=== PATIENT | male | born 1950 | race Caucasian/White ===

== ENCOUNTER 2017-06-16 05:30 | Emergency (ER) | payer OTHER | END 2017-06-16 06:35 | disposition home or self-care (01) | LOC: D.ER 05:30 | DX: R11.10 Vomiting, unspecified (principal); R06.6 Hiccough; I44.0 Atrioventricular block, first degree ==

== ENCOUNTER 2017-07-05 02:04 | Emergency (ER) | payer OTHER ==
[2017-07-05 02:34] LABS: BASOPHILS 0.4 % (0-2); EOSINOPHILS 3.9 % (0-7); HEMATOCRIT 37.4 % (42.0-54.0); HEMOGLOBIN 12.9 g/dL (13.5-17.5); LYMPHOCYTES 31.9 % (15-50); MCH 30.8 pg (26.0-34.0); MCHC 34.5 g/dL (31.0-37.0); MCV 89.3 fL (80.0-100.0); MEAN PLATELET VOLUME 10.4 fL (7.4-10.4); NEUTROPHILS 56.8 % (40-80); PLATELET COUNT 177 10x3/uL (130-400); RBC 4.19 10x6/uL (4.20-6.10); RDW 12.8 % (11.5-14.5); WBC 5.1 10x3/uL (4.8-10.8)
[2017-07-05 02:43] LABS: INR 0.93 (0.85-1.17); PROTIME 12.1 SECONDS (11.6-15.0)
[2017-07-05 02:44] LABS: APTT 23.7 SECONDS (22.8-39.4)
[2017-07-05 02:49] LABS: ALBUMIN 3.3 g/dL (3.4-5.0); ANION GAP 13.9 mmol/L (8-16); BILIRUBIN - TOTAL 0.62 mg/dL (0.2-1.3); CALCIUM 8.8 mg/dL (8.5-10.1); CARBON DIOXIDE 28.9 mmol/L (21.0-32.0); CREATININE - SERUM 1.5 mg/dL (0.6-1.3); MAGNESIUM - SERUM 1.7 mg/dL (1.8-2.4); POTASSIUM - SERUM 3.8 mmol/L (3.5-5.1)
[2017-07-05 04:00] LABS: TROPONIN-I 0.017 ng/mL (0.000-0.060)
== END 2017-07-05 06:43 | disposition short-term general hospital (02) ==
LOC: D.ER 02:04
PROVIDERS: Emergency Medicine
DX: G45.9 Transient cerebral ischemic attack, unspecified (principal); D64.9 Anemia, unspecified; I10 Essential (primary) hypertension; E11.9 Type 2 diabetes mellitus without complications; E83.42 Hypomagnesemia; N28.9 Disorder of kidney and ureter, unspecified; J18.9 Pneumonia, unspecified organism

== ENCOUNTER 2018-01-31 10:44 | Inpatient (IN) | payer OTHER ==
[~2018-01-31] VITALS: Ht 182.9 cm; Wt 113.4 kg
--- NOTE | ~2018-01-31 | MORECARE ---
CASE MANAGEMENT DISCHARGE SUMMARY PATIENT: DEVORAH LORD UNIT: [id number] ADM DATE: 01/31/18 AGE: 67 : 50 SEX: M ROOM/BED: D.2101 AUTHOR: TREASURE,DOC PHYSICIAN: REFERRING PHYSICIAN: ZAK MENJIVAR MD DATE OF SERVICE: 02/01/18 Discharge Plan Patient Name: DEVORAH LORD Facility: [facility]:[place] : 1950 Planned Disposition: [facility] facility Anticipated Discharge Date: 02/01/18 Discharge Date: Expected LOS: 1 Initial Reviewer: CAROLYN Initial Review Date: 02/01/2018 Generated: 02/01/18 5:42 pm Comments DCP- Discharge Planning Updated by [email or web address]: Adam Mata on 02/01/18 3:[address] Patient Name: DEVORAH LORD Admission Status: ER Accout number: [id number] Admission Date: 01-31-2018 : 1950 Admission Diagnosis: Attending: ZAK MENJIVAR Current LOS: 1 Anticipated DC Date: 02-01-2018 Planned Disposition: [place] facility Primary Insurance: [employer] ADMINISTRATION PLANNED EXTERNAL PROVIDER: [facility] WHEN BED AVAILABLE OR HOME WHEN STABLE Discharge Planning Comments: CM MET WITH PT IN ROOM TO DISCUSS DISCHARGE PLANNING AND NEEDS. PT REPORTS LIVING AT HOME INDEPENDENTLY AND ALONE. PT HAS NO MEDICAL EQUIPMENT AND NO OUTSIDE SERVICES ASSISTING IN THE HOME. CM DISCUSSED AVAILABILITY OF HOME HEALTH, REHAB SERVICES AND MEDICAL EQUIPMENT. PT DENIES DISCHARGE NEEDS, REPORTS [facility] WILL PICK HIM UP FOR DISCHARGE HOME. PT REPORTS HE THINKS THE [facility], PT IS WILLING FOR TRANSFER IF BED IS AVAILABLE. CM CALLED [place] [facility], , PT PLACED ON TRANSFER LIST, VA WILL CALL IF AND WHEN A BED BECOMES AVAILABLE. Auto Body Builder Apprentice: Adam Mata DCPIA - Discharge Planning Initial Assessment Updated by [email or web address]: Adam Mata on 02/01/18 4:36 pm * Is the patient Alert and Oriented? Yes * How many steps to enter\exit or inside your home? * PCP [facility] * Pharmacy [place] [facility] * Preadmission Environment Home Alone * ADLs Independent * Equipment None * Other Equipment [facility] - PREFERRED PROVIDER * List name and contact numbers for known caregivers / representatives who currently or will assist patient after discharge: JUAN GALARZA, DTR, TOREY LORD, SON, * Verbal permission to speak to the caregivers and representatives has been obtained from the patient. N/A * Community resources currently utilized None * Please name any agencies selected above. NONE * Additional services required to return to the preadmission environment? No * Can the patient safely return to the preadmission environment? Yes * Has this patient been hospitalized within the prior 30 days at any hospital? Yes Patient Name: DEVORAH LORD Page 58038 at 1642 All edits/amendments must be made on the electronic document DICTATION DATE: 02/01/181640 JAVA SOFTWARE: KATLIN 02/01/181640 RPT#: [id number] DC DATE: STATUS: ADM IN [facility] [address] [place] [address] END OF REPORT
--- NOTE | ~2018-01-31 | EC ---
PATIENT:DEVORAH LORD DATE OF SERVICE: 01/31/18 SEX: M MEDICAL RECORD: [id number] DATE OF : [birth year] LOCATION:D.M2 D.210 AGE OF PATIENT: 67 ADMISSION DATE: 01/31/18 REFERRING PHYSICIAN: INTERPRETING PHYSICIAN: LAKEISHA HENDRICKSON MD ECHOCARDIOGRAM REPORT ECHO CHARGES 4 ECHO COMPLETE Date: 02/01/18 CLINICAL DIAGNOSIS: CHF ECHOCARDIOGRAPHIC MEASUREMENTS (adult normal given) AC root (d.<3.7cm) 3.6 cm LV Septum d (<1.2 cm> 1.4 cm Valve Excursion 1.3 cm LV Septum (systole) 1.6 cm Left Atria (s.<4.0cm> 4.0 cm LVPW d(<1.2cm) 1.6 cm RV (d.<2.3cm) 5.3 cm LVPW (sytole) 1.8 cm LV diastole(<5.6CM) 5.6 cm MV E-F(>70mm/sec) cm LV systole 4.5 cm LVOT Diameter 1.9 cm MV exc.(>10mm) 1.9 cm Est.ejection fraction (50-75%) % DOPPLER: LVIT cm/sec A 145 cm/sec E 1036 cm/sec LA cm/sec RVSP 31 mmHg LVOT 127 cm/sec AOP1/2T m/s Asc. Ao 277 cm/sec RVOT 108 cm/sec RA cm/sec PA 166 cm/sec AV Gradient Peak 30.64mmHg AV Mean 17.34mmHg AV Area 1.2 cm MV Gradient Peak 7.93 mmHg MV Mean 3.39 mmHg MV Area cm COMMENTS: Flight Operations Engineer: Chito HSIEH Director Of Collections: 4 Dr. Hendrickson TAPE# PACS Pericardial Effusion N DATE OF SERVICE: PROCEDURE: Transthoracic echocardiogram. FINDINGS: 1. The left ventricle shows evidence of moderate concentric left ventricular hypertrophy. Inflow characteristics consistent with diastolic dysfunction, ejection fraction is 55%. 2. The left atrium is mildly dilated. 3. The aortic valve is thickened and sclerotic and there appears to be at least ECHOCARDIOGRAM REPORT [id number] DEVORAH LORD moderate aortic stenosis with a peak pressure gradient measured here of 30 mmHg. Valve area was calculated at 1.2 cm-squared. 4. The mitral valve has mild mitral regurgitation. There is mitral annular calcification. 5. Tricuspid valve has mild tricuspid regurgitation. 6. The right ventricle is moderately dilated. 7. The right atrium is mildly dilated. 8. The pulmonic valve appears grossly normal. 9. The pericardium is normal. CONCLUSIONS: The patient has evidence of hypertensive heart disease as well as moderate aortic stenosis. Further evaluation and treatment may be advisable depending on the patient's clinical situation. TRANSINT:[id number] Voice Confirmation ID: [id number] DOCUMENT ID: [id number] LAKEISHA HENDRICKSON MD CC: [id number] DICTATION DATE: 02/04/18 103 CUSTOM FEED MILL OPERATOR: 02/04/18 1054 DIS IN 02/03/18 [facility] [address] [place] [address]
--- NOTE | ~2018-01-31 | MORECARE ---
CASE MANAGEMENT DISCHARGE SUMMARY PATIENT: DEVORAH LORD UNIT: [id number] ADM DATE: 01/31/18 AGE: 67 : 50 SEX: M ROOM/BED: D.210 AUTHOR: TREASURE,DOC PHYSICIAN: REFERRING PHYSICIAN: ZAK MENJIVAR MD DATE OF SERVICE: 02/04/18 Discharge Plan Patient Name: DEVORAH LORD Facility: [facility]:[place] : 1950 Planned Disposition: [facility] facility Anticipated Discharge Date: 02/03/18 Discharge Date: 02/03/2018 Expected LOS: 3 Initial Reviewer: [email or web address] Initial Review Date: 02/01/2018 Generated: 02/04/18 9:26 am Comments DCP- Discharge Planning Updated by [email or web address]: Adam Mata on 02/04/18 7:[address] Patient Name: DEVORAH LORD Encounter No: [id number] : 1950 Primary Insurance: [employer] Anticipated DC Date: 02-03-2018 Planned Disposition: HOME DCP follow-up note: CM REVIEWED CHART, PT DISCHARGED HOME OVER WEEKEND. CM CALLED [facility], , PT REMOVED FROM TRANSFER LIST, CM FAXED DISCHARGE INFORMATION TO [facility] AT [phone]. ANUP Maria DCP- Discharge Planning Updated by [email or web address]: Adam Mata on 02/01/18 3:[address] Patient Name: DEVORAH LORD Admission Status: ER Accout number: [id number] Admission Date: 01-31-2018 : 1950 Admission Diagnosis: Attending: ZAK MENJIVAR Current LOS: 1 Anticipated DC Date: 02-01-2018 Planned Disposition: [place] facility Primary Insurance: [facility] ADMINISTRATION PLANNED EXTERNAL PROVIDER: [facility] WHEN BED AVAILABLE OR HOME WHEN STABLE Discharge Planning Comments: CM MET WITH PT IN ROOM TO DISCUSS DISCHARGE PLANNING AND NEEDS. PT REPORTS LIVING AT HOME INDEPENDENTLY AND ALONE. PT HAS NO MEDICAL EQUIPMENT AND NO OUTSIDE SERVICES ASSISTING IN THE HOME. CM DISCUSSED AVAILABILITY OF HOME HEALTH, REHAB SERVICES AND MEDICAL EQUIPMENT. PT DENIES DISCHARGE NEEDS, REPORTS [facility] WILL PICK HIM UP FOR DISCHARGE HOME. PT REPORTS HE THINKS [facility], PT IS WILLING FOR TRANSFER IF BED IS AVAILABLE. CM CALLED [place] [facility], , PT PLACED ON TRANSFER LIST, VA WILL CALL IF AND WHEN A BED BECOMES AVAILABLE. Cracker And Cookie Machine Operator: Adam Adolfo DCPIA - Discharge Planning Initial Assessment Updated by [email or web address]: Adam Mata on 02/01/18 4:36 pm * Is the patient Alert and Oriented? Yes * How many steps to enter\exit or inside your home? * PCP [facility] * Pharmacy [place] OR [facility] * Preadmission Environment Home Alone * ADLs Independent * Equipment None * Other Equipment [place] - PREFERRED PROVIDER * List name and contact numbers for known caregivers / representatives who currently or will assist patient after discharge: JUAN GALARZA, DTR, TOREY LORD, SON, * Verbal permission to speak to the caregivers and representatives has been obtained from the patient. N/A * Community resources currently utilized None * Please name any agencies selected above. NONE * Additional services required to return to the preadmission environment? No * Can the patient safely return to the preadmission environment? Yes * Has this patient been hospitalized within the prior 30 days at any hospital? Yes Last DP export: 02/04/18 7:14 Patient Name: DEVORAH LORD Page [id number] at 0826 All edits/amendments must be made on the electronic document DICTATION DATE: 02/04/18825 RUBBER COMPOUNDER MIXER: KATLIN 02/04/18825 RPT#: [id number] DC DATE:02/03/18 STATUS: DIS IN [facility] [address] [facility] [place] [address] END OF REPORT
--- NOTE | ~2018-01-31 | MORECARE ---
CASE MANAGEMENT DISCHARGE SUMMARY PATIENT: DEVORAH LORD UNIT: [id number] ADM DATE: 01/31/18 AGE: 67 : 50 SEX: M ROOM/BED: D.2101 AUTHOR: TREASUER,DOC PHYSICIAN: REFERRING PHYSICIAN: ZAK MENJIVAR MD DATE OF SERVICE: 02/04/18 Discharge Plan Patient Name: DEVORAH LORD Facility: [facility]:[place] : 1950 Planned Disposition: [facility] facility Anticipated Discharge Date: 02/03/18 Discharge Date: 02/03/2018 Expected LOS: 3 Initial Reviewer: [email or web address] Initial Review Date: 02/01/2018 Generated: 02/04/18 9:14 am Comments DCP- Discharge Planning Updated by [email or web address]: Adam Mata on 02/01/18 3:[address] Patient Name: DEVORAH LORD Admission Status: ER Accout number: [id number] Admission Date: 01-31-2018 : 1950 Admission Diagnosis: Attending: ZAK MENJIVAR Current LOS: 1 Anticipated DC Date: 02-01-2018 Planned Disposition: [place] facility Primary Insurance: [employer] ADMINISTRATION PLANNED EXTERNAL PROVIDER: [facility] WHEN BED AVAILABLE OR HOME WHEN STABLE Discharge Planning Comments: CM MET WITH PT IN ROOM TO DISCUSS DISCHARGE PLANNING AND NEEDS. PT REPORTS LIVING AT HOME INDEPENDENTLY AND ALONE. PT HAS NO MEDICAL EQUIPMENT AND NO OUTSIDE SERVICES ASSISTING IN THE HOME. CM DISCUSSED AVAILABILITY OF HOME HEALTH, REHAB SERVICES AND MEDICAL EQUIPMENT. PT DENIES DISCHARGE NEEDS, REPORTS [facility] WILL PICK HIM UP FOR DISCHARGE HOME. PT REPORTS HE THINKS THE ER [facility]ED THE [facility] FOR [facility] YESTERDAY, PT IS WILLING FOR TRANSFER IF BED IS AVAILABLE. CM CALLED [place] [facility], , PT PLACED ON TRANSFER LIST, VA WILL CALL IF AND WHEN A BED BECOMES AVAILABLE. Cub Reporter: Adam Mata DCPIA - Discharge Planning Initial Assessment Updated by [email or web address]: Adam Mata on 02/01/18 4:36 pm * Is the patient Alert and Oriented? Yes * How many steps to enter\exit or inside your home? * PCP [facility] * Pharmacy [place] [facility] * Preadmission Environment Home Alone * ADLs Independent * Equipment None * Other Equipment [facility] - PREFERRED PROVIDER * List name and contact numbers for known caregivers / representatives who currently or will assist patient after discharge: JUAN GALARZA, DTR, TOREY LORD, SON, * Verbal permission to speak to the caregivers and representatives has been obtained from the patient. N/A * Community resources currently utilized None * Please name any agencies selected above. NONE * Additional services required to return to the preadmission environment? No * Can the patient safely return to the preadmission environment? Yes * Has this patient been hospitalized within the prior 30 days at any hospital? Yes External Providers External Provider: OTHER-OTHER Next Contact Date: 02/04/2018 Service Request Date: Service Type: Resolution: Reviewer: Comments: Last DP export: 02/01/18 3:42 Patient Name: DEVORAH LORD Page 04856 at 0814 All edits/amendments must be made on the electronic document DICTATION DATE: 02/04/18812 CITY WEIGHMASTER: KATILN 02/04/18812 RPT#: [id number] DC DATE:02/03/18 STATUS: DIS IN [facility] [address] [place] [address] END OF REPORT
[2018-01-31 11:45] LABS: ALBUMIN 3.3 g/dL (3.4-5.0); ALKALINE PHOSPHATASE 85 U/L (46-116); ALT (SGPT) 12 U/L (10-68); CALC OSMOLALITY 288 mosm/kg (275-300); CALCIUM 8.6 mg/dL (8.5-10.1); CARBON DIOXIDE 29.6 mmol/L (21.0-32.0); CHLORIDE - SERUM 107 mmol/L (98-107); CREATININE - SERUM 1.4 mg/dL (0.6-1.3); GLUCOSE 164 mg/dL (74-106); POTASSIUM - SERUM 4.6 mmol/L (3.5-5.1); SODIUM 142 mmol/L (136-145); UREA NITROGEN 18 mg/dL (7-18); eGFR NON AFRICAN AMERICAN 54 mL/min (90-120)
[2018-01-31 11:46] LABS: BASOPHILS 0.7 % (0-2); EOSINOPHILS 3.1 % (0-7); HEMATOCRIT 33.5 % (42.0-54.0); HEMOGLOBIN 10.6 g/dL (13.5-17.5); IMMATURE GRANULOCYTES 0.2 % (0-5); LYMPHOCYTES 21.2 % (15-50); MCH 29.4 pg (26.0-34.0); MCHC 31.6 g/dL (31.0-37.0); MCV 93.1 fL (80.0-100.0); MEAN PLATELET VOLUME 10.4 fL (7.4-10.4); NEUTROPHILS 68.8 % (40-80); PLATELET COUNT 161 10x3/uL (130-400); WBC 4.2 10x3/uL (4.8-10.8)
[2018-01-31 11:50] LABS: CREATINE KINASE 69 UL (21-232); PRO BNP 999 pg/mL (0-125)
[2018-01-31 11:51] LABS: TROPONIN-I < 0.017 ng/mL (0.000-0.060)
[2018-01-31 11:57] LABS: INR 1.11 (0.85-1.17)
[2018-01-31 12:07] VITALS: BP 153/70
[2018-01-31 12:10] LABS: CKMB 1.7 U/L (0.0-3.6); CREATINE KINASE 68 UL (21-232); PRO BNP 1058 pg/mL (0-125)
[2018-01-31 12:13] LABS: TROPONIN-I < 0.017 ng/mL (0.000-0.060)
[2018-01-31 12:47] LABS: APPEARANCE CLEAR (CLEAR); COLOR YELLOW (YELLOW)
[2018-01-31 12:48] LABS: BACTERIA FEW /hpf (NONE SEEN); BILIRUBIN NEGATIVE (NEGATIVE); EPITHELIAL CELLS RARE /hpf (0-5); GLUCOSE 50 mg/dL (NEGATIVE); KETONE NEGATIVE (NEGATIVE); MUCUS <1+ /lpf (NONE SEEN); NITRITE NEGATIVE (NEGATIVE); PROTEIN 1+ mg/dL (NEGATIVE); RED CELLS - URINE 0-5 /hpf (0-5); SPECIFIC GRAVITY 1.015 (1.005-1.020); UROBILINOGEN NORMAL (NORMAL)
[2018-01-31] MEDS ORDERED: PLAVIX75 MG PO (13:15)
[2018-01-31] MEDS ORDERED: COREG12.5 MG PO (13:15)
[2018-01-31] MEDS ORDERED: NIFEDIPINE60 MG/BOTT PO (13:16)
[2018-01-31] MEDS ORDERED: FLOMAX0.4 MG PO (13:16)
[2018-01-31] MEDS ORDERED: LYRICA75 MG PO (13:17)
[2018-01-31] MEDS ORDERED: LASIX40 MG PO (13:18)
[2018-01-31] MEDS ORDERED: KLOR-CON 1010 MEQ PO (13:19)
[2018-01-31 13:22] VITALS: BP 138/63
[2018-01-31 18:20] VITALS: BP 137/80; BMI 34.0
[2018-02-01 04:21] LABS: BASOPHILS 0.6 % (0-2); EOSINOPHILS 4.4 % (0-7); HEMOGLOBIN 10.7 g/dL (13.5-17.5); LYMPHOCYTES 35.4 % (15-50); MCH 29.6 pg (26.0-34.0); MCHC 32.4 g/dL (31.0-37.0); MCV 91.4 fL (80.0-100.0); MEAN PLATELET VOLUME 10.7 fL (7.4-10.4); MONOCYTES 10.1 % (2-11); NEUTROPHILS 49.5 % (40-80); PLATELET COUNT 136 10x3/uL (130-400); RBC 3.61 10x6/uL (4.20-6.10); WBC 3.2 10x3/uL (4.8-10.8)
[2018-02-01 04:42] LABS: ANION GAP 8.8 mmol/L (8-16); BILIRUBIN - TOTAL 0.27 mg/dL (0.2-1.3); CALCIUM 8.8 mg/dL (8.5-10.1); CARBON DIOXIDE 30.5 mmol/L (21.0-32.0); CREATININE - SERUM 1.3 mg/dL (0.6-1.3); POTASSIUM - SERUM 4.3 mmol/L (3.5-5.1); PROTEIN - SERUM 6.5 g/dL (6.4-8.2)
[2018-02-01 08:07] VITALS: BP 146/64
[2018-02-01 11:34] VITALS: BP 148/84
[2018-02-01 12:32] VITALS: BMI 33.9
[2018-02-01 12:56] VITALS: Ht 182.9 cm; Wt 113.4 kg
[2018-02-01 13:22] LABS: % SATURATION 17 % (15-55); IRON 47 ug/dl (35-150); TOTAL IRON BIND CAPACITY 271 ug/dl (260-445); UNSAT IRON BIND CAPACITY 224 ug/dl (150-375)
[2018-02-01 15:12] VITALS: BP 152/64
[2018-02-01 20:00] VITALS: BP 112/51
[2018-02-02] VITALS: BP 159/71
[2018-02-02 04:00] VITALS: BP 130/72
[2018-02-02 04:21] LABS: BASOPHILS 0.3 % (0-2); EOSINOPHILS 3.8 % (0-7); HEMATOCRIT 31.2 % (42.0-54.0); HEMOGLOBIN 10.2 g/dL (13.5-17.5); LYMPHOCYTES 36.5 % (15-50); MCH 29.7 pg (26.0-34.0); MCHC 32.7 g/dL (31.0-37.0); MCV 90.7 fL (80.0-100.0); MEAN PLATELET VOLUME 10.6 fL (7.4-10.4); MONOCYTES 9.9 % (2-11); NEUTROPHILS 49.5 % (40-80); PLATELET COUNT 138 10x3/uL (130-400); RBC 3.44 10x6/uL (4.20-6.10); WBC 3.6 10x3/uL (4.8-10.8)
[2018-02-02 04:27] LABS: ANION GAP 10.8 mmol/L (8-16); CALCIUM 8.6 mg/dL (8.5-10.1); CARBON DIOXIDE 32.2 mmol/L (21.0-32.0); CREATININE - SERUM 1.5 mg/dL (0.6-1.3)
[2018-02-02 08:09] LABS: FOLATE (FOLIC ACID) - SERUM 6.8 ng/mL (>3.0)
[2018-02-02 09:08] VITALS: BP 168/71
[2018-02-02 14:19] VITALS: BP 150/61
[2018-02-02 18:00] VITALS: BP 139/63
[2018-02-02 20:00] VITALS: BP 141/65
[2018-02-03] VITALS: BP 154/62
[2018-02-03 04:00] VITALS: BP 142/58
[2018-02-03 05:16] LABS: BASOPHILS 0.6 % (0-2); HEMATOCRIT 32.3 % (42.0-54.0); HEMOGLOBIN 10.4 g/dL (13.5-17.5); MCH 29.1 pg (26.0-34.0); MCHC 32.2 g/dL (31.0-37.0); MCV 90.5 fL (80.0-100.0); MEAN PLATELET VOLUME 10.5 fL (7.4-10.4); MONOCYTES 10.6 % (2-11); NEUTROPHILS 44.8 % (40-80); PLATELET COUNT 127 10x3/uL (130-400); RBC 3.57 10x6/uL (4.20-6.10); RDW 12.9 % (11.5-14.5); WBC 3.5 10x3/uL (4.8-10.8)
[2018-02-03 05:58] LABS: CALCIUM 8.3 mg/dL (8.5-10.1); CARBON DIOXIDE 32.8 mmol/L (21.0-32.0); CREATININE - SERUM 1.6 mg/dL (0.6-1.3); POTASSIUM - SERUM 3.8 mmol/L (3.5-5.1)
[2018-02-03 08:12] VITALS: BP 142/67
[2018-02-03] MEDS ORDERED: ELIQUIS5 MG PO (12:09)
[2018-02-03] MEDS ORDERED: ELIQUIS2.5 MG PO (12:10)
[2018-02-03] MEDS ORDERED: PROTONIX40 MG PO (12:11)
[2018-02-03 12:16] VITALS: BP 158/70
== END 2018-02-03 16:36 | disposition home or self-care (01) | DRG 176 ==
LOC: D.ER 10:44 → D.M2 15:24 → D.EDHOLD 15:24 → D.M2 16:27
PROVIDERS: Family Medicine; Internal Medicine Nephrology
DX: I26.99 Other pulmonary embolism without acute cor pulmonale (principal); D64.9 Anemia, unspecified; I25.10 Atherosclerotic heart disease of native coronary artery without angina pectoris; E78.5 Hyperlipidemia, unspecified; I10 Essential (primary) hypertension; F43.10 Post-traumatic stress disorder, unspecified; Z72.0 Tobacco use; Z86.73 Personal history of transient ischemic attack (TIA), and cerebral infarction without residual deficits

== ENCOUNTER 2018-05-02 13:23 | Emergency (ER) | payer OTHER ==
[~2018-05-02] VITALS: Ht 182.9 cm; Wt 118.2 kg
[~2018-05-02 13:23] MED LIST: COREG12.5 MG PO; ELIQUIS2.5 MG PO; ELIQUIS5 MG PO; FLOMAX0.4 MG PO; KLOR-CON 1010 MEQ PO; LASIX40 MG PO; LYRICA75 MG PO; NIFEDIPINE60 MG/BOTT PO; PLAVIX75 MG PO; PROTONIX40 MG PO
[2018-05-02 13:32] VITALS: BP 176/84; Ht 182.9 cm; Wt 118.2 kg
[2018-05-02 16:04] LABS: ALBUMIN 3.4 g/dL (3.4-5.0); ANION GAP 12.9 mmol/L (8-16); BILIRUBIN - TOTAL 0.4 mg/dL (0.2-1.3); CALCIUM 9.1 mg/dL (8.5-10.1); CARBON DIOXIDE 29.5 mmol/L (21.0-32.0); CREATININE - SERUM 1.3 mg/dL (0.6-1.3); POTASSIUM - SERUM 4.4 mmol/L (3.5-5.1); PROTEIN - SERUM 7.8 g/dL (6.4-8.2)
[2018-05-02] MEDS ORDERED: OXYBUTYNIN CHLOR5 MG PO (16:36)
== END 2018-05-02 17:15 | disposition home or self-care (01) ==
LOC: D.ER 13:23
PROVIDERS: Emergency Medicine
DX: E11.65 Type 2 diabetes mellitus with hyperglycemia (principal); N39.41 Urge incontinence; Z86.73 Personal history of transient ischemic attack (TIA), and cerebral infarction without residual deficits; I10 Essential (primary) hypertension

== ENCOUNTER 2018-05-26 14:52 | Inpatient (IN) | payer OTHER, MEDICARE ==
[~2018-05-26] VITALS: Ht 182.9 cm; Wt 105.0 kg
[2018-05-26] VITALS (13 sets, daily range): BP systolic 140–168; BP diastolic 60–90; BMI 33.5
--- NOTE | ~2018-05-26 | HEMODYNAMI ---
PATIENT:DEVORAH LORD MEDICAL RECORD: [id number] : 50 LOCATION:D.ICU D.2304 ADMISSION DATE: 05/26/18 Generatedon:05/28/201815:42 Patient name: DEVORAH LORD Patient #: [id number] SSN: D OB: 1950 Date of study: 05/28/2018 Page: Of Hemodynamic Procedure Report Patient Data Patient Demographics Procedure consent was obtained First Name: DEVORAH Gender: Male Last Name: POP : 1950 Middle Initial: J Age: 67 year(s) Patient #: [id number] Race: Unknown Additional ID: [id number] Contact details [address]: [address] [place] [address] [place] State: [place] City: [place] Zip code: [address] Past Medical History Allergies Allergen Reaction Date Comments Reported Other allergy 05/28/2018 codeine, augmentin Admission Admission Data Admission Date: 05/26/2018 Admission Time: 15:46 Admit Source: Other Room #: D.2304 Weight (lbs.): 244.49 Weight (kg.): 110.9 Lab Results Lab Result Date: 05/28/2018 Lab Result Time: 10:22 Biochemistry Name Units Result Min Max BUN mg/dl 30 --(----)-* 7 18 Creatinine mg/dl 1.7 --(----)-* 0.6 1.3 CBC Name Units Result Min Max Hematocrit % 34 *-(----)-- 42 54 Hemoglobin g/dl 11 *-(----)-- 13.5 17.5 Procedure Procedure Types Cath Procedure Diagnostic Procedure LHC LHC w/Coronaries w/Grafts Aortic Root Angiography Sedation Charges Moderate Sedation up to 30 minutes Peripheral Cath Diagnostic Procedure Abd/Extremity Aortagram Procedure Description Procedure Date Procedure Date: 05/28/2018 Procedure Start Time: 15:05 Procedure End Time: 15:39 Procedure Staff Name Function Leon Underwood MD Performing Physician Rickey Vaz RT Monitor Nancy Clinton RT Scrub Lala Neri RN Nurse Procedure Data Cath Procedure Fluoroscopy Diagnostic fluoroscopy Total fluoroscopy Time: 7.6 time: 7.6 min min Diagnostic fluoroscopy Total fluoroscopy dose: dose: 1604 mGy 1604 mGy Contrast Material Contrast Material Type Amount (ml) Isovue 300 132 Entry Location Entry Primary Successful Side Size Upsize Upsize Entry Closure Succes sful Closure Location (Fr) 1 (Fr) 2 (Fr) Remarks Device Remarks Femoral Right 5 Fr Exoseal artery Estimated blood loss: 5 ml Diagnostic catheters Device Type Used For End Catheter Placement MULTIPACK JL 4.0 5Fr Procedure catheter MULTIPACK 3DRC 5Fr Procedure catheter DIAGNOSTIC AR MOD 5Fr Procedure Catheter ([id number]) DIAGNOSTIC IM 5Fr Procedure catheter ([id number]) MULTIPACK Pigtail 5 Fr Procedure catheter DIAGNOSTIC AR MOD 5Fr Procedure Catheter ([id number]) MULTIPACK Pigtail 5 Fr Procedure catheter Procedure Complications No complications Procedure Medications Medication Administration Route Dosage Oxygen NC 6 l/min Heparin Flush Bag added to field 2 bags (1000units/500ml NS) 0.9% NaCl I.V. 100 ml/hr Lidocaine 2% added to field 20 Fentanyl I.V. 50 mcg Versed 1 mg Fentanyl I.V. 50 mcg Versed 1 mg Fentanyl I.V. 50 mcg Hemodynamics Rest HGB: 11 (g/dl) Heart Rate: 78 (bpm) Pressure Samples Time Site Value (mmHg) Purpose Heart Use Rate(bpm) 15:23 LV 123/15,31 Snapshot 69 15:24 AO 112/51(73) Pullback 72 15:24 LV 156/12,48 Pullback 72 Gradients Valve Time Site 1 Site 2 Mean SEP/DFP Peak To Heart Use (mmHg) (sec/min) Peak Rate (mmHg) (bpm) Aortic 15:24 LV AO 18 22 44 72 156/12,48 112/51(73) Calculations Valve P-P Mean Valve Index Valve Source Name Gradient Area Flow (cm2) Aortic 44 18 44 18 Snapshots Pre Cath Intra NCS Post Cath Vital Signs Time Heart Resp SPO2 etCO2 NIBP (mmHg) Rhythm Pain Sedation Rate (ipm) (%) (mmHg) Status Level (bpm) 14:54:35 79 16 92 140/72(110) NSR 0 (11) 10(A) , No pain 14:58:53 74 17 92 131/64(98) NSR 0 (11) 10(A) , No pain 15:03:07 72 17 88 118/66(90) NSR 0 (11) 9(A) , No pain 15:07:27 70 16 90 114/60(85) NSR 0 (11) 9(A) , No pain 15:11:39 71 17 94 123/70(108) NSR 0 (11) 9(A) , No pain 15:15:45 68 17 77 104/74(89) NSR 0 (11) 9(A) , No pain 15:20:52 68 16 85 113/71(93) NSR 0 (11) 9(A) , No pain 15:25:04 68 16 88 0 113/60(92) NSR 0 (11) 9(A) , No pain 15:29:10 68 17 88 0 108/91(99) NSR 0 (11) 9(A) , No pain 15:33:24 68 16 88 0 112/59(87) NSR 0 (11) 9(A) , No pain 15:37:36 69 12 89 0 111/67(93) NSR 0 (11) 9(A) , No pain Medications Time Medication Route Dose Verified Delivered Reason Notes Effe ctiveness by by 14:59:22 Oxygen NC 6 Leon Marco Per l/min Kj Valdes RN physician 14:59:30 Heparin Flush added 2 Leon Marco used for Bag to bags Kj Valdes loom checker (1000units/500ml field NS) 14:59:38 0.9% NaCl I.V. 100 Leon Marco Per ml/hr Kj Valdes RN physician 14:59:53 Lidocaine 2% added 20ml Leon Marco for local to vial Kj Valdes RN anesthetic field 15:00:00 Fentanyl I.V. 50 Leon Marco for leonardo Valdes RN sedation 15:00:07 Versed 1 mg Leon Marco for Kj Valdes RN sedation 15:05:52 Fentanyl I.V. 50 Leon Marco for leonardo Valdes RN sedation 15:05:56 Versed 1 mg Leon Marco for Kj Valdes RN sedation 15:10:41 Fentanyl I.V. 50 Leon Marco for leonardo Valdes RN sedation Procedure Log Time Note 14:10:44 Informed consent obtained and on chart 14:10:48 Admit Source: Other 14:12:46 Diagnostic Cath status Elective 14:13:42 H&P Date Dictated: 05/26/2018 Within 30 days and on chart.. 14:14:52 Lab Result : Creatinine 1.7 mg/dl 14:14:52 Lab Result : BUN 30 mg/dl 14:14:52 Lab Result : Hemoglobin 11 g/dl 14:14:52 Lab Result : Hematocrit 34 % 14:14:55 Lab results completed and on chart. 14:30:59 Nancy Clinton RT(R) sent for patient. Start room use. 14:44:06 Time tracking: Regular hours (M-F 7:00 - 5:00) 14:44:11 Plan of Care:Hemodynamics will remain stable., Cardiac rhythm will remain stable., Comfort level will be maintained., Respiratory function will remain adequate., Patient/ family verbilizes understanding of procedure., Procedure tolerated without complication., Recovers from procedure without complications.. 14:44:17 Patient received from ICU to CCL 1 Alert and oriented. Tansferred to table in Supine position. 14:44:18 Warm blankets applied, and darek hugger turned on for patient comfort. 14:44:18 Correct patient and procedure confirmed by team. 14:44:19 ECG and BP/O2 sat monitors applied to patient. 14:44:20 Pre-procedure instructions explained to patient. 14:44:21 Pre-op teaching completed and patient verbalized understanding. 14:44:22 Family in waiting room. 14:44:24 Patient NPO since Midnight. 14:44:50 Patient allergic to Other allergycodeine, augmentin 14:53:22 Vital chart was started 14:56:06 Baseline sample Acquired. 14:56:12 Rhythm: sinus rhythm 14:56:13 Full Disclosure recording started 14:56:22 Is patient on blood thinner?Yes 14:56:24 ACC The patient was administered the following blood thiners within the last 24 hours: ACCPlavix 14:56:27 Patient diabetic? Yes. 14:56:28 If diabetic: On Metformin? Yes 14:56:34 Previous problem with sedation/anesthesia? No ? 14:56:36 Snore? Yes 14:56:38 Sleep apnea? No 14:56:39 Deviated septum? No 14:56:39 Opens mouth fully? Yes 14:56:40 Sticks out tongue? Yes 14:56:43 Airway obstruction? No ? 14:56:47 Dentures? No no teeth 14:56:52 Pre procedure: right dorsailis pedis pulse Doppler 14:56:54 Patient pain scale 0/10 ?. 14:56:59 IV patent on arrival in right hand with 0.9% NaCl at [facility]. 14:57:04 Right groin area was prepped with chlora-prep and draped in sterile fashion 14:57:04 Alarms reviewed by R. N. 14:57:05 Sharps counted by scrub and verified by R.N. 14:57:07 Use device set Femoral Dx 14:57:08 ACIST Syringe (92556) opened to sterile field. 14:57:08 Bag Decanter (2002S) opened to sterile field. 14:57:09 Medline Cath Pack ([id number]) opened to sterile field. 14:57:10 ACIST Hand Control (06017) opened to sterile field. 14:57:10 ACIST Manifold (68324) opened to sterile field. 14:57:11 Tegaderm 4 x 4 (1626W) opened to sterile field. 14:57:12 SHEATH 5FR [place] (DGF051) opened to sterile field. 14:57:13 DIAGNOSTIC WIRE .035 260cm J wire (879533) opened to sterile field. 14:57:14 DIAGNOSTIC Multipack 5Fr catheter set ([id number]) opened to sterile field. 14:57:23 Physician arrived 14:57:23 --------ALL STOP TIME OUT------ 14:57:24 Final Timeout: patient, procedure, and site verified with staff and physician. All members of the team are in agreement. 14:57:25 Right groin site verified by team. 14:58:20 Maximum allowable Isovue 300 dose 326ml. Physician notified. (300ml for normal creatinines. For patients with creatinine of 1.7 or higher multiply weight(kg) x 5 divided by creatinine.) 14:58:24 Fire Safety Assessment: A--An alcohol-based skin anteseptic being used preoperatively., C--Open oxygen or nitrous oxide is being used., D--An ESU, laser, or fiber-optic light is being used. 14:58:27 Physical assessment completed. ASA score P 3 - A patient with severe systemic disease as per Leon Underwood MD. 14:58:30 Sedation plan: IV Moderate Sedation Medication:Versed, Fentanyl 14:59:22 Oxygen 6 l/min NC was administered by Marco Valdes RN; Per physician; 14:59:30 Heparin Flush Bag (1000units/500ml NS) 2 bags added to field was administered by Marco Valdes RN; used for procedure; 14:59:38 0.9% NaCl 100 ml/hr I.V. was administered by Marco Valdes RN; Per physician; 14:59:48 Patient Weight : 244.49 lbs 14:59:53 Lidocaine 2% 20ml vial added to field was administered by Marco Valdes RN; for local anesthetic; 15:00:00 Fentanyl 50 mcg I.V. was administered by Marco Valdes RN; for sedation; 15:00:07 Versed 1 mg was administered by Marco Valdes RN; for sedation; 15:03:28 Zero performed for pressure channel P1 15:03:36 Zero performed for pressure channel P1 15:03:42 Zero performed for pressure channel P1 15:03:52 Zero performed for pressure channel P1 15:05:13 Procedure started. 15:05:18 Local anesthetic to right femoral artery with Lidocaine 2% by Leon Underwood MD.INITIAL ACCESS ONLY 15:05:52 Fentanyl 50 mcg I.V. was administered by Marco Valdes RN; for sedation; 15:05:56 Versed 1 mg was administered by Marco Valdes RN; for sedation; 15:10:26 AMPLATZ Super stiff 3mm J 260cm wire ([id number]) opened to sterile field. 15:10:41 Fentanyl 50 mcg I.V. was administered by Maroc Valdes RN; for sedation; 15:11:04 amplatz wire advanced. 15:11:24 Wire removed. 15:12:12 J wire wire advanced. 15:12:23 A 5 Fr sheath was inserted into the Right Femoral artery 15:12:39 A MULTIPACK JL 4.0 5Fr catheter was advanced over the wire and used for Procedure. 15:13:22 LCA angiography performed. 15:14:51 A MULTIPACK 3DRC 5Fr catheter was advanced over the wire and used for Procedure. 15:14:56 RCA angiography performed. 15:15:28 Catheter exchanged over wire. 15:15:37 A DIAGNOSTIC AR MOD 5Fr Catheter ([id number]) was advanced over the wire and used for Procedure. 15:17:24 SVG to OM angiography performed. 15:18:11 Catheter exchanged over wire. 15:18:29 A DIAGNOSTIC IM 5Fr catheter ([id number]) was advanced over the wire and used for Procedure. 15:20:16 MORGAN to LAD angiography performed. 15:21:50 Catheter exchanged over wire. 15:21:55 A MULTIPACK Pigtail 5 Fr catheter was advanced over the wire and used for Procedure. 15:22:18 LV gram done using MONTES 15:22:21 Injector settings: Ml/sec: 10, Volume: 20, 15:22:23 LV hemodynamics recorded. 15:24:25 EF : 20 % 15:24:44 Aortic Root visualized 15:25:27 Catheter exchanged over wire. 15:25:34 A DIAGNOSTIC AR MOD 5Fr Catheter ([id number]) was advanced over the wire and used for Procedure. 15:27:00 SVG to RCA angiography performed. 15:28:06 Catheter exchanged over wire. 15:28:12 A MULTIPACK Pigtail 5 Fr catheter was advanced over the wire and used for Procedure. 15:29:49 Abdominal angiogram w/ runoff was performed. 15:29:51 Right leg runoff performed. 15:31:06 Catheter removed. 15:31:11 EXOSEAL 5Fr (EX500) opened to sterile field. 15:31:20 Sheath removed intact; hemostasis achieved with Exoseal to the Right Femoral artery. 15:31:50 Procedure ended.(Physican Out) 15:32:01 Fluoroscopy time 07.60 minutes. 15:32:05 Flurop Dose total: 1604 15:32:05 Fluoroscopy dose: 1604 mGy 15:32:09 Contrast amount:Isovue 300 132ml. 15:32:11 Sharps counted by scrub and verified by R.N. 15:32:12 Insertion/operative site no bleeding no hematoma. 15:32:15 Post-op/insertion site Right Femoral artery dressed using a 4 x 4 and Tegaderm. 15:33:59 Post Procedure Pulses reassessed and unchanged 15:34:02 Post-procedure physical assessment completed. ASA score P 4 - A patient with severe systemic disease that is a constant threat to life as per Leon Underwood MD. 15:34:17 Post procedure rhythm: unchanged. 15:34:20 Estimated blood loss: 5 ml 15:34:21 Post procedure instruction explained to patient.Patient verbalizes understanding. 15:34:22 Patient needs reinforcement of post procedure teaching. 15:35:05 Procedure type changed to Cath procedure, Diagnostic procedure, LHC, LHC w/Coronaries w/Grafts, Aortic Root Angiography, Sedation Charges, Moderate Sedation up to 30 minutes, Peripheral Cath Diagnostic Procedure, Abd/Extremity, Aortagram 15:37:52 IV Extension Set opened to sterile field. 15:38:58 Procedure and supply charges have been captured, reviewed, submitted and are correct. 15:39:00 Procedure Complication : No complications 15:39:02 Vital chart was stopped 15:39:03 See physician's report for complete and final results. 15:39:07 Report given to ICU. 15:39:09 Patient transfered to ICU with Stretcher. 15:39:11 Procedure ended. 15:39:11 Full Disclosure recording stopped 15:39:15 End room use (Document Last) Device Usage Item Name Manufacture Quantity Catalog Hospital Part Current Minimal Lot# / Number Charge Number Stock Stock Serial# Code ACIST Acist 1 25914 661949 101096 762886 20 Syringe Medical (53800) Systems Inc Bag Decanter Microtek 1 2001S 367532 07884 535460 5 () Medical Inc. Medline Cath Medline 1 [id number] 209434 78854 645916 5 Pack ([id number]) ACIST Hand Acist 1 01721 698163 984794 727495 5 Control Medical (39059) Systems Inc ACIST Acist 1 65987 462006 031445 434200 5 Manifold Medical (11486) Systems Inc Tegaderm 4 x 3M 1 1626W 792374 655326 335920 5 4 (1626W) SHEATH 5FR Terumo 1 UDO184 150483 850682 558938 5 [place] (AFP635) DIAGNOSTIC St Umang 1 253401 542267 072669 760144 30 WIRE .035 260cm J wire (773631) DIAGNOSTIC Cardinal 1 QT8064 541173 40858 423295 30 Multipack Health 5Fr catheter set (DS2584) AMPLATZ [place] 1 [id number] 510266 364056 5 Super stiff Scientific 3mm J 260cm wire ([id number]) MULTIPACK JL Cardinal 1 854154 5 4.0 5Fr Health catheter MULTIPACK Cardinal 1 879563 5 3DRC 5Fr Health catheter DIAGNOSTIC Cardinal 1 890937F 818213 887799 193348 15 AR MOD 5Fr Health Catheter (087472K) DIAGNOSTIC Cardinal 1 532707G 513173 582825 024360 5 IM 5Fr Health catheter (040691B) MULTIPACK Cardinal 1 050167 5 Pigtail 5 Fr Health catheter EXOSEAL 5Fr Cardinal 1 EX500 809017 117188 239642 10 (EX500) Health IV Extension Hospira 1 80153-54 374718 00612 186420 5 Set Signature Audit [place] Stage Time Signature Unsigned Intra-Procedure 05/28/2018 Rickey Vaz 3:42:09 PM RT(R) Signatures Monitor : Rickey Vaz RT Signature : Date : Time : [address] [address]
[~2018-05-26 14:52] MED LIST changes: +OXYBUTYNIN CHLOR5 MG PO
[2018-05-26] MEDS ORDERED: NORVASC10 MG PO (15:02)
[2018-05-26] MEDS ORDERED: LIPITOR80 MG PO (15:03)
[2018-05-26] MEDS ORDERED: COZAAR100 MG PO (15:03)
[2018-05-26] MEDS ORDERED: TENORMIN25 MG PO (15:03)
[2018-05-26] MEDS ORDERED: TALWIN NX1 TAB PO (15:04)
[2018-05-26 15:13] LABS: BASOPHILS 0.2 % (0-2); EOSINOPHILS 0.4 % (0-7); HEMATOCRIT 37.2 % (42.0-54.0); HEMOGLOBIN 11.7 g/dL (13.5-17.5); IMMATURE GRANULOCYTES 0.3 % (0-5); LYMPHOCYTES 9.2 % (15-50); MCH 28.5 pg (26.0-34.0); MCHC 31.5 g/dL (31.0-37.0); MCV 90.7 fL (80.0-100.0); MONOCYTES 7.7 % (2-11); NEUTROPHILS 82.2 % (40-80); PLATELET COUNT 245 10x3/uL (130-400); RDW 13.8 % (11.5-14.5); WBC 10.1 10x3/uL (4.8-10.8)
[2018-05-26 15:33] LABS: ALKALINE PHOSPHATASE 109 U/L (46-116); ALT (SGPT) 13 U/L (10-68); BILIRUBIN - TOTAL 0.36 mg/dL (0.2-1.3); CALC OSMOLALITY 298 mosm/kg (275-300); CALCIUM 8.5 mg/dL (8.5-10.1); CARBON DIOXIDE 26.6 mmol/L (21.0-32.0); CHLORIDE - SERUM 102 mmol/L (98-107); POTASSIUM - SERUM 4.3 mmol/L (3.5-5.1); PROTEIN - SERUM 7.5 g/dL (6.4-8.2); SODIUM 138 mmol/L (136-145); UREA NITROGEN 31 mg/dL (7-18); eGFR NON AFRICAN AMERICAN 35 mL/min (90-120)
[2018-05-26 15:34] LABS: GLUCOSE 393 mg/dL (74-106)
[2018-05-26 15:49] LABS: CKMB 7.3 U/L (0.0-3.6); CREATINE KINASE 123 UL (21-232); PRO BNP 6190 pg/mL (0-125)
[2018-05-26 16:02] LABS: TROPONIN-I 2.164 ng/mL (0.000-0.060)
--- NOTE | 2018-05-26 16:09 | MORECARE ---
CASE MANAGEMENT DISCHARGE SUMMARY PATIENT: DEVORAH LORD UNIT: [id number] ADM DATE: 05/26/18 AGE: 67 : 50 SEX: M ROOM/BED: D.2304 AUTHOR: SHAYY AMANDA PHYSICIAN: REFERRING PHYSICIAN: ZAK MENJIVAR MD DATE OF SERVICE: 05/26/18 Discharge Plan Patient Name: DEVORAH LORD Facility: [facility]:[place] : 1950 Planned Disposition: Home Anticipated Discharge Date: 05/28/18 Discharge Date: Expected LOS: 2 Initial Reviewer: [email or web address] Initial Review Date: 05/26/2018 Generated: 05/26/18 5:08 pm Patient Name: DEVORAH LORD Page 19009 at 1609 All edits/amendments must be made on the electronic document DICTATION DATE: 05/26/181607 RESEARCH COMPLIANCE SPECIALIST: KATLIN 05/26/181607 RPT#: [id number] DC DATE: STATUS: ADM IN [facility] [address] [place] [address] END OF REPORT
--- NOTE | 2018-05-26 16:27 | MORECARE ---
CASE MANAGEMENT DISCHARGE SUMMARY PATIENT: DEVORAH LORD UNIT: [id number] ADM DATE: 05/26/18 AGE: 67 : 50 SEX: M ROOM/BED: D.2304 AUTHOR: SHAYY AMANDA PHYSICIAN: REFERRING PHYSICIAN: ZAK MENJIVAR MD DATE OF SERVICE: 05/26/18 Discharge Plan Patient Name: DEVORAH LORD Facility: [facility]:[place] : 1950 Planned Disposition: Home Anticipated Discharge Date: 05/28/18 Discharge Date: Expected LOS: 2 Initial Reviewer: [email or web address] Initial Review Date: 05/26/2018 Generated: 05/26/18 5:27 pm Last DP export: 05/26/18 3:09 p Patient Name: DEVORAH LORD Page 29103 at 1627 All edits/amendments must be made on the electronic document DICTATION DATE: 05/26/181626 FIRE CONTROLMAN: KATLIN 05/26/181626 RPT#: [id number] DC DATE: STATUS: ADM IN [facility] [address] [place] [address] END OF REPORT
--- NOTE | 2018-05-26 16:34 | MORECARE ---
CASE MANAGEMENT DISCHARGE SUMMARY PATIENT: DEVORAH LORD UNIT: [id number] ADM DATE: 05/26/18 AGE: 67 : 50 SEX: M ROOM/BED: D.2304 AUTHOR: TREASURE,DOC PHYSICIAN: REFERRING PHYSICIAN: ZAK MENJIVAR MD DATE OF SERVICE: 05/26/18 Discharge Plan Patient Name: DEVORAH LORD Facility: [facility]:[place] : 1950 Planned Disposition: Home Anticipated Discharge Date: 05/28/18 Discharge Date: Expected LOS: 2 Initial Reviewer: [email or web address] Initial Review Date: 05/26/2018 Generated: 05/26/18 5:33 pm DCP- Discharge Planning Updated by [email or web address]: Sadaf Murphy on 05/26/18 3:[address] Patient Name: DEVORAH LORD Admission Status: ER Accout number: [id number] Admission Date: 05-26-2018 : 1950 Admission Diagnosis: Attending: ZAK MENJIVAR Current LOS: 1 Anticipated DC Date: 05-28-2018 Planned Disposition: Home Primary Insurance: [employer] Discharge Planning Comments: CM met with patient to complete initial dc planning assessment. CM educated patient on the CM role and verbal consent given by patient to complete assessment. Patient lives at home alone and reports he is independent in his care at home. DME at home is a walker, cane, and oxygen. At discharge patient plans to return home alone and feels this is a safe discharge. CM discussed availability of home health, rehab services, and medical equipment. Patient was placed on bipap in the er due to acidosis. Patient is also [facility] but requested to stay here. He stated he has stayed here before and the VA paid for it. CM called the [facility] and patient listed as unstable at this for transfer at this time. CM spoke to [place]ul[place] regarding admission to our facility. Patient denied known discharge needs at this time. CM will continue to follow and will assist as needed with dc plans/needs. Retort Feeder Ground Bone: Sadaf Murphy RN, [facility] DCPIA - Discharge Planning Initial Assessment Updated by [email or web address]: Sadaf Murphy on 05/26/18 4:29 pm * Is the patient Alert and Oriented? Yes * [facility]CP [facility] * [facility]acy [place] provides all his medications. * Preadmission Environment Home Alone * ADLs Independent * Equipment Cane Oxygen Rolling Walker * List name and contact numbers for known caregivers / representatives who currently or will assist patient after discharge: Iliana Castro - daughter - [phone] Shelley Reed - son - [phone] * Verbal permission to speak to the caregivers and representatives has been obtained from the patient. Yes * Community resources currently utilized None * Additional services required to return to the preadmission environment? No * Can the patient safely return to the preadmission environment? Yes * Has this patient been hospitalized within the prior 30 days at any hospital? Yes Last DP export: 05/26/18 3:27 p Patient Name: DEVORAH LORD Page [phone] at 1634 All edits/amendments must be made on the electronic document DICTATION DATE: 05/26/18 163 POWER TRUCK DRIVER: KATLIN 05/26/18 1633 RPT#: [id number] DC DATE: STATUS: ADM IN [facility] [address] [place] [address] END OF REPORT
[2018-05-26 17:26] LABS: APTT 29.4 SECONDS (22.8-39.4); INR 1.16 (0.85-1.17); PROTIME 14.2 SECONDS (11.6-15.0)
[2018-05-26 23:04] LABS: CKMB 11.5 U/L (0.0-3.6); CREATINE KINASE 182 UL (21-232)
[2018-05-26 23:06] LABS: TROPONIN-I 6.762 ng/mL (0.000-0.060)
[2018-05-27] VITALS (24 sets, daily range): BP systolic 124–173; BP diastolic 56–99; Ht 182.9 cm; Wt 105.0 kg
[2018-05-27 05:32] LABS: BASOPHILS 0.2 % (0-2); EOSINOPHILS 0.2 % (0-7); HEMOGLOBIN 11.4 g/dL (13.5-17.5); IMMATURE GRANULOCYTES 0.2 % (0-5); LYMPHOCYTES 10.1 % (15-50); MCH 28.8 pg (26.0-34.0); MCHC 32.6 g/dL (31.0-37.0); MEAN PLATELET VOLUME 11.2 fL (7.4-10.4); MONOCYTES 8.4 % (2-11); NEUTROPHILS 80.9 % (40-80); RBC 3.96 10x6/uL (4.20-6.10); RDW 13.5 % (11.5-14.5)
[2018-05-27 05:34] LABS: MCV 88.4 fL (80.0-100.0); PLATELET COUNT 191 10x3/uL (130-400); WBC 6.4 10x3/uL (4.8-10.8)
[2018-05-27 06:02] LABS: CALCIUM 8.2 mg/dL (8.5-10.1); CARBON DIOXIDE 27.4 mmol/L (21.0-32.0); CHLORIDE - SERUM 103 mmol/L (98-107); CKMB 9.9 U/L (0.0-3.6); CREATINE KINASE 154 UL (21-232); CREATININE - SERUM 1.7 mg/dL (0.6-1.3); POTASSIUM - SERUM 4.3 mmol/L (3.5-5.1); SODIUM 139 mmol/L (136-145); UREA NITROGEN 30 mg/dL (7-18); eGFR NON AFRICAN AMERICAN 43 mL/min (90-120)
[2018-05-27 06:04] LABS: CALC OSMOLALITY 296 mosm/kg (275-300); GLUCOSE 339 mg/dL (74-106)
[2018-05-27 06:05] LABS: TROPONIN-I 6.407 ng/mL (0.000-0.060)
[2018-05-27 10:31] LABS: MCH 28.7 pg (26.0-34.0); MCHC 32.4 g/dL (31.0-37.0); MCV 88.8 fL (80.0-100.0); RBC 3.83 10x6/uL (4.20-6.10); RDW 13.4 % (11.5-14.5)
[2018-05-27 10:39] LABS: APTT 29.6 SECONDS (22.8-39.4); INR 1.25 (0.85-1.17); PROTIME 15.2 SECONDS (11.6-15.0)
[2018-05-27 11:24] LABS: CREATINE KINASE 139 UL (21-232)
[2018-05-27 11:27] LABS: TROPONIN-I 4.461 ng/mL (0.000-0.060)
[2018-05-28] VITALS (20 sets, daily range): BP systolic 105–165; BP diastolic 57–85
[2018-05-28 01:23] LABS: HEMATOCRIT 33.9 % (42.0-54.0); HEMOGLOBIN 11.1 g/dL (13.5-17.5); MCH 28.8 pg (26.0-34.0); MCHC 32.7 g/dL (31.0-37.0); MCV 88.1 fL (80.0-100.0); MEAN PLATELET VOLUME 10.7 fL (7.4-10.4); RBC 3.85 10x6/uL (4.20-6.10); RDW 13.4 % (11.5-14.5); WBC 7.3 10x3/uL (4.8-10.8)
[2018-05-28 06:53] LABS: BASOPHILS 0.3 % (0-2); EOSINOPHILS 0.6 % (0-7); IMMATURE GRANULOCYTES 0.3 % (0-5); LYMPHOCYTES 16.7 % (15-50); MCH 28.4 pg (26.0-34.0); MCHC 32.4 g/dL (31.0-37.0); MCV 87.6 fL (80.0-100.0); MEAN PLATELET VOLUME 10.4 fL (7.4-10.4); MONOCYTES 9.2 % (2-11); NEUTROPHILS 72.9 % (40-80); PLATELET COUNT 203 10x3/uL (130-400); RBC 3.88 10x6/uL (4.20-6.10); RDW 13.4 % (11.5-14.5); WBC 6.8 10x3/uL (4.8-10.8)
[2018-05-28 07:05] LABS: ANION GAP 11.3 mmol/L (8-16); CALCIUM 8.3 mg/dL (8.5-10.1); CARBON DIOXIDE 27.6 mmol/L (21.0-32.0); CREATININE - SERUM 1.6 mg/dL (0.6-1.3); POTASSIUM - SERUM 3.9 mmol/L (3.5-5.1)
[2018-05-28 12:51] LABS: HEMATOCRIT 35.2 % (42.0-54.0); HEMOGLOBIN 11.5 g/dL (13.5-17.5)
[2018-05-29 05:05] LABS: BASOPHILS 0.4 % (0-2); EOSINOPHILS 0.7 % (0-7); HEMATOCRIT 30.4 % (42.0-54.0); HEMOGLOBIN 9.8 g/dL (13.5-17.5); IMMATURE GRANULOCYTES 0.4 % (0-5); LYMPHOCYTES 13.6 % (15-50); MCH 28.3 pg (26.0-34.0); MCHC 32.2 g/dL (31.0-37.0); MCV 87.9 fL (80.0-100.0); MEAN PLATELET VOLUME 11.1 fL (7.4-10.4); MONOCYTES 10.5 % (2-11); NEUTROPHILS 74.4 % (40-80); PLATELET COUNT 214 10x3/uL (130-400); RBC 3.46 10x6/uL (4.20-6.10); RDW 13.4 % (11.5-14.5); WBC 5.4 10x3/uL (4.8-10.8)
[2018-05-29 05:08] LABS: ANION GAP 10.1 mmol/L (8-16); CALCIUM 7.9 mg/dL (8.5-10.1); CARBON DIOXIDE 29.7 mmol/L (21.0-32.0); CREATININE - SERUM 1.8 mg/dL (0.6-1.3); POTASSIUM - SERUM 3.8 mmol/L (3.5-5.1)
[2018-05-29 05:21] VITALS: BP 110/59
[2018-05-29 08:22] VITALS: BP 110/58
[2018-05-29 12:07] VITALS: BP 128/61
[2018-05-29 15:30] VITALS: BP 129/62
[2018-05-29 20:57] VITALS: BP 114/63
[2018-05-29 23:59] VITALS: BP 110/56
[2018-05-30 05:27] VITALS: BP 112/57
[2018-05-30 06:13] LABS: BASOPHILS 0.3 % (0-2); EOSINOPHILS 2.7 % (0-7); HEMATOCRIT 31.4 % (42.0-54.0); IMMATURE GRANULOCYTES 0.1 % (0-5); LYMPHOCYTES 14.2 % (15-50); MCH 28.1 pg (26.0-34.0); MCHC 31.8 g/dL (31.0-37.0); MCV 88.2 fL (80.0-100.0); MEAN PLATELET VOLUME 10.8 fL (7.4-10.4); MONOCYTES 8.7 % (2-11); PLATELET COUNT 212 10x3/uL (130-400); RBC 3.56 10x6/uL (4.20-6.10); RDW 13.2 % (11.5-14.5); WBC 6.7 10x3/uL (4.8-10.8)
[2018-05-30 06:26] LABS: ANION GAP 11.7 mmol/L (8-16); CALCIUM 8.1 mg/dL (8.5-10.1); CREATININE - SERUM 2.2 mg/dL (0.6-1.3); POTASSIUM - SERUM 3.7 mmol/L (3.5-5.1)
[2018-05-30 08:46] VITALS: BP 126/61
[2018-05-30 12:44] VITALS: BP 116/57
--- NOTE | 2018-05-30 15:01 | MORECARE ---
CASE MANAGEMENT DISCHARGE SUMMARY PATIENT: DEVORAH LORD UNIT: [id number] ADM DATE: 05/26/18 AGE: 67 : 50 SEX: M ROOM/BED: D.3477 AUTHOR: TREASURE,DOC PHYSICIAN: REFERRING PHYSICIAN: ZAK MENJIVAR MD DATE OF SERVICE: 05/30/18 Discharge Plan Patient Name: DEVORAH LORD Facility: [facility]:[place] : 1950 Planned Disposition: Home Anticipated Discharge Date: 05/28/18 Discharge Date: Expected LOS: 2 Initial Reviewer: [email or web address] Initial Review Date: 05/26/2018 Generated: 05/30/18 4:01 pm Comments DCP- Discharge Planning Updated by [email or web address]: Adam Mata on 05/30/18 1:[address] Patient Name: DEVORAH LORD Encounter No: [id number] : 1950 Primary Insurance: [employer] Anticipated DC Date: 05-28-2018 Planned Disposition: Home DCP follow-up note: CM MET WITH PT IN ROOM TO DISCUSS DISCHARGE NEEDS AND PLANNING. CM DISCUSSED AVAILABILITY OF HOME HEALTH, REHAB SERVICES AND MEDICAL EQUIPMENT. PT DENIES DISCHARGE NEEDS. PT DOES NOT KNOW IF THE DOCTOR IS GOING TO WANT A BIPAP FOR PT'S HOME USE. PT DOES NOT HAVE HOME BIPAP AND GETS ALL MEDICAL EQUIPMENT FROM THE [facility]. PT IS SEEN AT THE [facility] BY TEAM 3. IMPORTANT MESSAGE FROM MEDICARE PROVIDED AND EXPLAINED. CM TO FOLLOW AND ASSIST NEEDED. IF PT REQUIRES ANY MEDICAL EQUIPMENT FOR DISCHARGE HOME, PT GETS EQUIPMENT FROM [facility], [facility], TEAM 3. Adam Mata, CASE DANIA DCP- Discharge Planning Updated by [email or web address]: Sadaf Murphy on 05/26/18 3:[address] Patient Name: DEVORAH LORD Admission Status: ER Accout number: [id number] Admission Date: 05-26-2018 : 1950 Admission Diagnosis: Attending: ZAK MENJIVAR Current LOS: 1 Anticipated DC Date: 05-28-2018 Planned Disposition: Home Primary Insurance: [employer] Discharge Planning Comments: CM met with patient to complete initial dc planning assessment. CM educated patient on the CM role and verbal consent given by patient to complete assessment. Patient lives at home alone and reports he is independent in his care at home. DME at home is a walker, cane, and oxygen. At discharge patient plans to return home alone and feels this is a safe discharge. CM discussed availability of home health, rehab services, and medical equipment. Patient was placed on bipap in the er due to acidosis. [facility]. He stated he has stayed here before and the [place] [facility]. [facility] and patient listed as [facility] at this for transfer at this time. CM spoke to Yuliet regarding admission to our facility. Patient denied known discharge needs at this time. CM will continue to follow and will assist as needed with dc plans/needs. Mysql Database Developer: Sadaf Murphy RN, [facility] DCPIA - Discharge Planning Initial Assessment Updated by [email or web address]: Sadaf Murphy on 05/26/18 4:29 pm * Is the patient Alert and Oriented? Yes * PCP [place] doctor * Pharmacy [place] provides all his medications. * Preadmission Environment Home Alone * ADLs Independent * Equipment Cane Oxygen Rolling Walker * List name and contact numbers for known caregivers / representatives who currently or will assist patient after discharge: Iliana Castro - daughter - [phone] Shelley Reed - son - [phone] * Verbal permission to speak to the caregivers and representatives has been obtained from the patient. Yes * Community resources currently utilized None * Additional services required to return to the preadmission environment? No * Can the patient safely return to the preadmission environment? Yes * Has this patient been hospitalized within the prior 30 days at any hospital? Yes Coverage Notice Reviewer: [email or web address] - Adam Mata Notice Issued Date-Time: 05/30/2018 14:10 Notice Type: IM Discharge Notice Notice Delivered To: Patient Relationship to Patient: Director Banking Name: Delivery Method: HAND - Hand Delivered Uma Days: Prior Verbal Notification: Recipient Understood Notice: Yes Recipient Signature: Yes Med Rec Note Co-signed by Attending: Coverage Notice Comment: Last DP export: 05/26/18 3:34 p Patient Name: DEVORAH LORD Page [id number] at 1501 All edits/amendments must be made on the electronic document DICTATION DATE: 05/30/181499 MERCHANDISE PLANNING MANAGER: KATLIN 05/30/181499 RPT#: [id number] DC DATE: STATUS: ADM IN [facility] [address] [place] [address] END OF REPORT
[2018-05-30 17:09] VITALS: BP 120/60
[2018-05-30 20:00] VITALS: BP 105/54
[2018-05-31] VITALS: BP 100/54; BP 102/57
[2018-05-31 00:41] LABS: HEMATOCRIT 29.6 % (42.0-54.0); HEMOGLOBIN 9.5 g/dL (13.5-17.5); MCHC 32.1 g/dL (31.0-37.0); MCV 87.3 fL (80.0-100.0); RBC 3.39 10x6/uL (4.20-6.10); RDW 13.1 % (11.5-14.5); WBC 6.9 10x3/uL (4.8-10.8)
[2018-05-31 04:00] VITALS: BP 110/56
[2018-05-31 06:37] LABS: BASOPHILS 0.3 % (0-2); EOSINOPHILS 3.2 % (0-7); HEMOGLOBIN 9.6 g/dL (13.5-17.5); LYMPHOCYTES 13.4 % (15-50); MCH 28.3 pg (26.0-34.0); MCV 88.5 fL (80.0-100.0); MEAN PLATELET VOLUME 11.3 fL (7.4-10.4); MONOCYTES 9.7 % (2-11); NEUTROPHILS 73.4 % (40-80); PLATELET COUNT 222 10x3/uL (130-400); RBC 3.39 10x6/uL (4.20-6.10); RDW 13.3 % (11.5-14.5); WBC 7.1 10x3/uL (4.8-10.8)
[2018-05-31 06:59] LABS: ANION GAP 15.3 mmol/L (8-16); CALCIUM 8.1 mg/dL (8.5-10.1); CARBON DIOXIDE 26.5 mmol/L (21.0-32.0); CREATININE - SERUM 2.6 mg/dL (0.6-1.3); POTASSIUM - SERUM 3.8 mmol/L (3.5-5.1)
[2018-05-31 08:17] VITALS: BP 114/60
--- NOTE | 2018-05-31 08:39 | MORECARE ---
CASE MANAGEMENT DISCHARGE SUMMARY PATIENT: DEVORAH LORD UNIT: [id number] ADM DATE: 05/26/18 AGE: 67 : 50 SEX: M ROOM/BED: D.2990 AUTHOR: TREASURE,DOC PHYSICIAN: REFERRING PHYSICIAN: ZAK MENJIVAR MD DATE OF SERVICE: 05/31/18 Discharge Plan Patient Name: DEVORAH LORD Facility: [facility]:[place] : 1950 Planned Disposition: Home Anticipated Discharge Date: 06/03/18 Discharge Date: Expected LOS: 8 Initial Reviewer: [email or web address] Initial Review Date: 05/26/2018 Generated: 05/31/18 9:39 am Comments DCP- Discharge Planning Updated by [email or web address]: Adam Mata on 05/30/18 1:[address] Patient Name: DEVORAH LORD Encounter No: [id number] : 1950 Primary Insurance: [employer] Anticipated DC Date: 05-28-2018 Planned Disposition: Home DCP follow-up note: CM MET WITH PT IN ROOM TO DISCUSS DISCHARGE NEEDS AND PLANNING. CM DISCUSSED AVAILABILITY OF HOME HEALTH, REHAB SERVICES AND MEDICAL EQUIPMENT. PT DENIES DISCHARGE NEEDS. PT DOES NOT KNOW IF THE DOCTOR IS GOING TO WANT A BIPAP FOR PT'S HOME USE. PT DOES NOT HAVE HOME BIPAP AND GETS ALL MEDICAL EQUIPMENT FROM THE [facility]. PT IS SEEN AT THE [facility] BY TEAM 3. IMPORTANT MESSAGE FROM MEDICARE PROVIDED AND EXPLAINED. CM TO FOLLOW AND ASSIST NEEDED. IF PT REQUIRES ANY MEDICAL EQUIPMENT FOR DISCHARGE HOME, PT GETS EQUIPMENT FROM [facility], [facility], TEAM 3. Adam Mata, CASE DANIA DCP- Discharge Planning Updated by [email or web address]: Sadaf Murphy on 05/26/18 3:[address] Patient Name: DEVORAH LORD Admission Status: ER Accout number: [id number] Admission Date: 05-26-2018 : 1950 Admission Diagnosis: Attending: ZAK MENJIAVR Current LOS: 1 Anticipated DC Date: 05-28-2018 Planned Disposition: Home Primary Insurance: [employer] Discharge Planning Comments: CM met with patient to complete initial dc planning assessment. CM educated patient on the CM role and verbal consent given by patient to complete assessment. Patient lives at home alone and reports he is independent in his care at home. DME at home is a walker, cane, and oxygen. At discharge patient plans to return home alone and feels this is a safe discharge. CM discussed availability of home health, rehab services, and medical equipment. Patient was placed on bipap in the er due to acidosis. [facility] also [facility]. He stated he has stayed here before and the [place] paid for it. [facility] and patient listed as unstable at this for transfer at this time. CM spoke to Yuliet regarding admission to our facility. Patient denied known discharge needs at this time. CM will continue to follow and will assist as needed with dc plans/needs. Hspt Tutor: Sadaf Murphy RN, [facility] DCPIA - Discharge Planning Initial Assessment Updated by [email or web address]: Sadaf Murphy on 05/26/18 4:29 pm * Is the patient Alert and Oriented? Yes * PCP [place] doctor * Pharmacy [place] provides all his medications. * Preadmission Environment Home Alone * ADLs Independent * Equipment Cane Oxygen Rolling Walker * List name and contact numbers for known caregivers / representatives who currently or will assist patient after discharge: Iliana Castro - daughter - [phone] Shelley Reed - son - [phone] * Verbal permission to speak to the caregivers and representatives has been obtained from the patient. Yes * Community resources currently utilized None * Additional services required to return to the preadmission environment? No * Can the patient safely return to the preadmission environment? Yes * Has this patient been hospitalized within the prior 30 days at any hospital? Yes External Providers External Provider: OTHER-OTHER Next Contact Date: 05/24/2018 Service Request Date: Service Type: Resolution: Reviewer: Comments: Coverage Notice Reviewer: [email or web address] - Adam Mata Notice Issued Date-Time: 05/30/2018 14:10 Notice Type: IM Discharge Notice Notice Delivered To: Patient Relationship to Patient: Industrial Technology Teacher Name: Delivery Method: HAND - Hand Delivered Uma Days: Prior Verbal Notification: Recipient Understood Notice: Yes Recipient Signature: Yes Med Rec Note Co-signed by Attending: Coverage Notice Comment: Last DP export: 05/30/18 2:01 p Patient Name: DEVORAH LORD Page [phone] at 0839 All edits/amendments must be made on the electronic document DICTATION DATE: 05/31/18838 FORESTRY TREE PRUNER: KATLIN 05/31/18838 RPT#: [id number] DC DATE: STATUS: ADM IN [facility] [address] [place] [address] END OF REPORT
--- NOTE | 2018-05-31 09:12 | MORECARE ---
CASE MANAGEMENT DISCHARGE SUMMARY PATIENT: DEVORAH LORD UNIT: [id number] ADM DATE: 05/26/18 AGE: 67 : 50 SEX: M ROOM/BED: D.0338 AUTHOR: TREASURE,DOC PHYSICIAN: REFERRING PHYSICIAN: ZAK MENJIVAR MD DATE OF SERVICE: 05/31/18 Discharge Plan Patient Name: DEVORAH LORD Facility: [facility]:[place] : 1950 Planned Disposition: Inpatient Rehab Anticipated Discharge Date: 06/03/18 Discharge Date: Expected LOS: 8 Initial Reviewer: [id number] Initial Review Date: 05/26/2018 Generated: 05/31/18 10:12 am Comments DCP- Discharge Planning Updated by [email or web address]: Adam Mata on 05/30/18 1:[address] Patient Name: DEVORAH LORD Encounter No: [id number] : 1950 Primary Insurance: [employer] Anticipated DC Date: 05-28-2018 Planned Disposition: Home DCP follow-up note: CM MET WITH PT IN ROOM TO DISCUSS DISCHARGE NEEDS AND PLANNING. CM DISCUSSED AVAILABILITY OF HOME HEALTH, REHAB SERVICES AND MEDICAL EQUIPMENT. PT DENIES DISCHARGE NEEDS. PT DOES NOT KNOW IF THE DOCTOR IS GOING TO WANT A BIPAP FOR PT'S HOME USE. PT DOES NOT HAVE HOME BIPAP AND GETS ALL MEDICAL EQUIPMENT FROM THE [facility]. PT IS SEEN AT THE [facility] BY TEAM 3. IMPORTANT MESSAGE FROM MEDICARE PROVIDED AND EXPLAINED. CM TO FOLLOW AND ASSIST NEEDED. IF PT REQUIRES ANY MEDICAL EQUIPMENT FOR DISCHARGE HOME, PT GETS EQUIPMENT FROM [facility], [facility], TEAM 3. Adam Mata, CASE DANIA DCP- Discharge Planning Updated by [id number]: Sadaf Murphy on 05/26/18 3:[address] Patient Name: DEVORAH LORD Admission Status: ER Accout number: [id number] Admission Date: 05-26-2018 : 1950 Admission Diagnosis: Attending: ZAK MENJIVAR Current LOS: 1 Anticipated DC Date: 05-28-2018 Planned Disposition: Home Primary Insurance: [employer] Discharge Planning Comments: CM met with patient to complete initial dc planning assessment. CM educated patient on the CM role and verbal consent given by patient to complete assessment. Patient lives at home alone and reports he is independent in his care at home. DME at home is a walker, cane, and oxygen. At discharge patient plans to return home alone and feels this is a safe discharge. CM discussed availability of home health, rehab services, and medical equipment. Patient was placed on bipap in the er due to acidosis. [facility] also [facility]. He stated he has stayed here before and [facility]. [facility] and patient listed as unstable at this for transfer at this time. CM spoke to Yuliet regarding admission to our facility. Patient denied known discharge needs at this time. CM will continue to follow and will assist as needed with dc plans/needs. Bridge Mechanic: Sadaf Murphy RN, [facility] DCPIA - Discharge Planning Initial Assessment Updated by [id number]: Sadaf Murphy on 05/26/18 4:29 pm * Is the patient Alert and Oriented? Yes * PCP [facility] doctor * [facility]acy [facility] provides all his medications. * Preadmission Environment Home Alone * ADLs Independent * Equipment Cane Oxygen Rolling Walker * List name and contact numbers for known caregivers / representatives who currently or will assist patient after discharge: Iliana Castro - daughter - [phone] Shelley Reed - son - [phone] * Verbal permission to speak to the caregivers and representatives has been obtained from the patient. Yes * Community resources currently utilized None * Additional services required to return to the preadmission environment? No * Can the patient safely return to the preadmission environment? Yes * Has this patient been hospitalized within the prior 30 days at any hospital? Yes Coverage Notice Reviewer: [id number] - Adam Mata Notice Issued Date-Time: 05/30/2018 14:10 Notice Type: IM Discharge Notice Notice Delivered To: Patient Relationship to Patient: Coal Unloader Name: Delivery Method: HAND - Hand Delivered Uma Days: Prior Verbal Notification: Recipient Understood Notice: Yes Recipient Signature: Yes Med Rec Note Co-signed by Attending: Coverage Notice Comment: Last DP export: 05/31/18 7:39 a Patient Name: DEVORAH LORD Page [id number] at 0912 All edits/amendments must be made on the electronic document DICTATION DATE: 05/31/18911 MOLASSES AND CARAMEL OPERATOR: KATLIN 05/31/18911 RPT#: [id number] DC DATE: STATUS: ADM IN [facility] [address] [place] [address] END OF REPORT
--- NOTE | 2018-05-31 09:26 | MORECARE ---
CASE MANAGEMENT DISCHARGE SUMMARY PATIENT: DEVORAH LORD UNIT: [id number] ADM DATE: 05/26/18 AGE: 67 : 50 SEX: M ROOM/BED: D.5315 AUTHOR: TREASURE,DOC PHYSICIAN: REFERRING PHYSICIAN: ZAK MENJIVAR MD DATE OF SERVICE: 05/31/18 Discharge Plan Patient Name: DEVORAH LORD Facility: [facility]:[place] : 1950 Planned Disposition: Inpatient Rehab Anticipated Discharge Date: 06/03/18 Discharge Date: Expected LOS: 8 Initial Reviewer: [id number] Initial Review Date: 05/26/2018 Generated: 05/31/18 10:25 am Comments DCP- Discharge Planning Updated by [email or web address]: Adam Mata on 05/31/18 8:[address] Patient Name: DEVORAH LORD Encounter No: [id number] : 1950 Primary Insurance: [employer] Anticipated DC Date: 06-03-2018 Planned Disposition: Inpatient Rehab External Planned Provider: [facility] DCP follow-up note: CM RECEIVED ORDER FOR INPATIENT REHAB PRESCREEN, MET WITH PT IN ROOM TO DISCUSS DISCHARGE PLANNING AND NEEDS. PT REPORTS HE THINKS HE MAY NEED REHAB PRIOR TO GOING HOME ALONE. CM DISCUSSED REHAB OPTIONS PT IS REGISTERED WITH [facility] FOR THIS STAY. PT WOULD LIKE FOR CM TO LOOK INTO INPATIENT REHAB WITH THE [facility] AND STATES THEY HAVE ONE IN [place]. CM CALLED [facility], , SPOKE TO UMBERTO RODAS APN, WHO WILL SCREEN PT FOR ADMISSION TO [facility]. CM FAXED REFERRAL TO [facility] AT [phone]. CM SPOKE TO [facility] OF INPATIENT REH[facility] AT [place] WHO ADVISED THAT PT'S CURRENT HOSPITAL STAY WOULD HAVE TO BE BILLED WITH MEDICARE PRIMARY TO BE CONSIDERED FOR REHAB AT [place]. CM REVIEWED CHART, PT IS PRIMARY INSURANCE [facility] WITH SECONDARY OF MEDICARE. CM ASKED BING TO REMOVE PT FROM [place] INPATIENT REHAB LIST FOR SCREENING. CM WAITING ADMISSION DETERMINATION FROM [facility]. ANUP Maria DCP- Discharge Planning Updated by [email or web address]: Adam Mata on 05/30/18 1:[address] Patient Name: DEVORAH LORD Encounter No: [id number] : 1950 Primary Insurance: [employer] Anticipated DC Date: 05-28-2018 Planned Disposition: Home DCP follow-up note: CM MET WITH PT IN ROOM TO DISCUSS DISCHARGE NEEDS AND PLANNING. CM DISCUSSED AVAILABILITY OF HOME HEALTH, REHAB SERVICES AND MEDICAL EQUIPMENT. PT DENIES DISCHARGE NEEDS. PT DOES NOT KNOW IF THE DOCTOR IS GOING TO WANT A BIPAP FOR PT'S HOME USE. PT DOES NOT HAVE HOME BIPAP AND GETS ALL MEDICAL EQUIPMENT FROM THE [facility]. PT IS SEEN AT THE [facility] BY TEAM 3. IMPORTANT MESSAGE FROM MEDICARE PROVIDED AND EXPLAINED. CM TO FOLLOW AND ASSIST NEEDED. IF PT REQUIRES ANY MEDICAL EQUIPMENT FOR DISCHARGE HOME, PT GETS EQUIPMENT FROM [facility], [facility], TEAM 3. Adam Mata, CASE MANAGEMENT DCP- Discharge Planning Updated by [id number]: Sadaf Murphy on 05/26/18 3:[address] Patient Name: DEVORAH LORD Admission Status: ER Accout number: [id number] Admission Date: 05-26-2018 : 1950 Admission Diagnosis: Attending: ZAK MENJIVAR Current LOS: 1 Anticipated DC Date: 05-28-2018 Planned Disposition: Home Primary Insurance: [employer] Discharge Planning Comments: CM met with patient to complete initial dc planning assessment. CM educated patient on the CM role and verbal consent given by patient to complete assessment. Patient lives at home alone and reports he is independent in his care at home. DME at home is a walker, cane, and oxygen. At discharge patient plans to return home alone and feels this is a safe discharge. CM discussed availability of home health, rehab services, and medical equipment. Patient was placed on bipap in the er due to acidosis. Patient is also [facility] but requested to stay here. He stated he has stayed here before and the [facility] paid for it. CM called the [facility] and patient listed as unstable at this for transfer at this time. CM spoke to Yuliet regarding admission to our facility. Patient denied known discharge needs at this time. CM will continue to follow and will assist as needed with dc plans/needs. Rehabilitation Director: Sadaf Murphy RN, [facility] DCPIA - Discharge Planning Initial Assessment Updated by [id number]: Sadaf Murphy on 05/26/18 4:29 pm * Is the patient Alert and Oriented? Yes * [facility]CP [facility] doctor * [facility] provides all his medications. * Preadmission Environment Home Alone * ADLs Independent * Equipment Cane Oxygen Rolling Walker * List name and contact numbers for known caregivers / representatives who currently or will assist patient after discharge: Iliana Castro - daughter - [phone] Shelley Reed - son - [phone] * Verbal permission to speak to the caregivers and representatives has been obtained from the patient. Yes * Community resources currently utilized None * Additional services required to return to the preadmission environment? No * Can the patient safely return to the preadmission environment? Yes * Has this patient been hospitalized within the prior 30 days at any hospital? Yes Coverage Notice Reviewer: [id number] Delmi Mata Notice Issued Date-Time: 05/30/2018 14:10 Notice Type: IM Discharge Notice Notice Delivered To: Patient Relationship to Patient: Pest Control Applicator Name: Delivery Method: HAND - Hand Delivered Uma Days: Prior Verbal Notification: Recipient Understood Notice: Yes Recipient Signature: Yes Med Rec Note Co-signed by Attending: Coverage Notice Comment: Last DP export: 05/31/18 8:12 a Patient Name: DEVORAH LORD Page 47834 at 0926 All edits/amendments must be made on the electronic document DICTATION DATE: 05/31/18924 CRITICAL SYSTEMS TECHNICIAN: KATLIN 05/31/18924 RPT#: [id number] DC DATE: STATUS: ADM IN [facility] [address] [place] [address] END OF REPORT
[2018-05-31 12:22] VITALS: BP 118/64
[2018-05-31 16:08] VITALS: BP 107/56
[2018-05-31 20:00] VITALS: BP 112/52
[2018-06-01 01:14] LABS: HEMATOCRIT 27.3 % (42.0-54.0); HEMOGLOBIN 8.9 g/dL (13.5-17.5); MCH 28.8 pg (26.0-34.0); MCHC 32.6 g/dL (31.0-37.0); MCV 88.3 fL (80.0-100.0); MEAN PLATELET VOLUME 11.8 fL (7.4-10.4); RBC 3.09 10x6/uL (4.20-6.10); RDW 13.4 % (11.5-14.5); WBC 5.9 10x3/uL (4.8-10.8)
[2018-06-01 04:23] VITALS: BP 126/63
[2018-06-01 04:32] LABS: BASOPHILS 0.3 % (0-2); EOSINOPHILS 3.3 % (0-7); HEMATOCRIT 29.4 % (42.0-54.0); HEMOGLOBIN 9.7 g/dL (13.5-17.5); IMMATURE GRANULOCYTES 0.2 % (0-5); MCV 87.8 fL (80.0-100.0); MEAN PLATELET VOLUME 10.7 fL (7.4-10.4); MONOCYTES 9.8 % (2-11); NEUTROPHILS 69.4 % (40-80); PLATELET COUNT 206 10x3/uL (130-400); RBC 3.35 10x6/uL (4.20-6.10); RDW 13.3 % (11.5-14.5); WBC 5.8 10x3/uL (4.8-10.8)
[2018-06-01 04:50] LABS: ALBUMIN 2.2 g/dL (3.4-5.0); ANION GAP 12.2 mmol/L (8-16); BILIRUBIN - TOTAL 0.24 mg/dL (0.2-1.3); CALCIUM 8.1 mg/dL (8.5-10.1); CARBON DIOXIDE 26.6 mmol/L (21.0-32.0); POTASSIUM - SERUM 3.8 mmol/L (3.5-5.1); PROTEIN - SERUM 6.2 g/dL (6.4-8.2)
[2018-06-01 09:23] VITALS: BP 105/60
[2018-06-01 11:38] VITALS: BP 119/64
[2018-06-01 16:15] VITALS: BP 104/65
[2018-06-01 20:00] VITALS: BP 117/60
[2018-06-02] VITALS: BP 110/58
[2018-06-02 03:00] VITALS: BP 114/60
[2018-06-02 05:16] LABS: BASOPHILS 0.1 % (0-2); EOSINOPHILS 2.5 % (0-7); HEMATOCRIT 30.6 % (42.0-54.0); HEMOGLOBIN 9.8 g/dL (13.5-17.5); IMMATURE GRANULOCYTES 0.1 % (0-5); LYMPHOCYTES 12.9 % (15-50); MCH 27.9 pg (26.0-34.0); MCV 87.2 fL (80.0-100.0); MONOCYTES 9.3 % (2-11); NEUTROPHILS 75.1 % (40-80); PLATELET COUNT 238 10x3/uL (130-400); RBC 3.51 10x6/uL (4.20-6.10); RDW 13.2 % (11.5-14.5); WBC 6.8 10x3/uL (4.8-10.8)
[2018-06-02 05:21] LABS: ALBUMIN 2.4 g/dL (3.4-5.0); ANION GAP 15.5 mmol/L (8-16); BILIRUBIN - TOTAL 0.3 mg/dL (0.2-1.3); CALCIUM 8.1 mg/dL (8.5-10.1); CARBON DIOXIDE 25.6 mmol/L (21.0-32.0); CREATININE - SERUM 2.9 mg/dL (0.6-1.3); POTASSIUM - SERUM 4.1 mmol/L (3.5-5.1); PROTEIN - SERUM 6.2 g/dL (6.4-8.2)
[2018-06-02 09:27] VITALS: BP 118/62
[2018-06-02 11:56] VITALS: BP 105/66
[2018-06-02 15:55] VITALS: BP 122/63
[2018-06-02 20:00] VITALS: BP 102/52
[2018-06-03] VITALS (7 sets, daily range): BP systolic 99–132; BP diastolic 45–71
[2018-06-03 08:12] LABS: BASOPHILS 0.1 % (0-2); EOSINOPHILS 0.7 % (0-7); HEMATOCRIT 32.1 % (42.0-54.0); HEMOGLOBIN 10.1 g/dL (13.5-17.5); IMMATURE GRANULOCYTES 0.1 % (0-5); LYMPHOCYTES 7.8 % (15-50); MCH 28.1 pg (26.0-34.0); MCHC 31.5 g/dL (31.0-37.0); MEAN PLATELET VOLUME 11.3 fL (7.4-10.4); MONOCYTES 8.5 % (2-11); NEUTROPHILS 82.8 % (40-80); PLATELET COUNT 233 10x3/uL (130-400); RDW 13.3 % (11.5-14.5); WBC 6.8 10x3/uL (4.8-10.8)
[2018-06-03 08:13] LABS: MCV 89.2 fL (80.0-100.0)
[2018-06-03 08:16] LABS: ALBUMIN 2.4 g/dL (3.4-5.0); ANION GAP 16.6 mmol/L (8-16); BILIRUBIN - TOTAL 0.34 mg/dL (0.2-1.3); CARBON DIOXIDE 24.8 mmol/L (21.0-32.0); CREATININE - SERUM 2.5 mg/dL (0.6-1.3); POTASSIUM - SERUM 4.4 mmol/L (3.5-5.1)
--- NOTE | 2018-06-03 09:44 | MORECARE ---
CASE MANAGEMENT DISCHARGE SUMMARY PATIENT: DEVORAH LORD UNIT: [id number] ADM DATE: 05/26/18 AGE: 67 : 50 SEX: M ROOM/BED: D.3342 AUTHOR: TREASURE,DOC PHYSICIAN: REFERRING PHYSICIAN: ZAK MENJIVAR MD DATE OF SERVICE: 06/03/18 Discharge Plan Patient Name: DEVORAH LORD Facility: [facility]:[place] : 1950 Planned Disposition: Inpatient Rehab Anticipated Discharge Date: 06/03/18 Discharge Date: Expected LOS: 8 Initial Reviewer: [email or web address] Initial Review Date: 05/26/2018 Generated: 06/03/18 10:44 am Comments DCP- Discharge Planning Updated by [email or web address]: Adam Mata on 06/03/18 8:[address] Patient Name: DEVORAH LORD Encounter No: [id number] : 1950 Primary Insurance: [employer] Anticipated DC Date: 06-03-2018 Planned Disposition: Inpatient Rehab External Planned Provider: [facility] DCP follow-up note: CM MET WITH PT AND DAUGHTER, ILIANA CASTRO, IN ROOM TO DISCUSS DISCHARGE PLANNING AND NEEDS. DEVORAH LORD provided verbal consent to discuss current and ongoing needs with/in the presence of: ILIANA CASTRO. PT AND DAUGHTER REPORT PT NEEDS REHAB PRIOR TO GOING HOME ALONE AND THEY ARE HOPING FOR [facility] HOSPITAL TRANSFER. CM ADVISED THE REFERRAL FOR [facility]PATIENT REHAB AT [facility] IN [place] FAXED LAST SUNDAY. CM NOTES PT IS ON 11 LITERS WITH BIPAP ON DURING CM VISIT. CM FAXED REFERRAL UPDATE TO [facility] AT [phone]. CM WAITING ADMISSION DETERMINATION FROM [facility]. ANUP Maria DCP- Discharge Planning Updated by [email or web address]: Adam Mata on 05/31/18 8:[address] Patient Name: DEVORAH LORD Encounter No: [id number] : 1950 Primary Insurance: [employer] Anticipated DC Date: 06-03-2018 Planned Disposition: Inpatient Rehab External Planned Provider: [facility] DCP follow-up note: CM RECEIVED ORDER FOR INPATIENT REHAB PRESCREEN, MET WITH PT IN ROOM TO DISCUSS DISCHARGE PLANNING AND NEEDS. PT REPORTS HE THINKS HE MAY NEED REHAB PRIOR TO GOING HOME ALONE. CM DISCUSSED REHAB OPTIONS PT IS REGISTERED WITH [facility] FOR THIS STAY. PT WOULD LIKE FOR CM TO LOOK INTO INPATIENT REHAB WITH THE [facility] AND STATES THEY HAVE ONE IN [place]. CM CALLED [facility], , SPOKE TO UMBERTO RODAS APN, WHO WILL SCREEN PT FOR ADMISSION TO [facility]. CM FAXED REFERRAL TO [facility] AT [phone]. CM SPOKE TO [facility]ING OF INPATIENT REHAB AT [place] WHO ADVISED THAT PT'S CURRENT HOSPITAL STAY WOULD HAVE TO BE BILLED WITH MEDICARE PRIMARY TO BE CONSIDERED FOR REHAB AT [place]. CM REVIEWED CHART, PT IS PRIMARY INSURANCE [facility] WITH SECONDARY OF MEDICARE. CM ASKED BING TO REMOVE PT FROM [place] INPATIENT REHAB LIST FOR SCREENING. CM WAITING ADMISSION DETERMINATION FROM [facility]. Adam Mata, CASE MANAGEMENT DCP- Discharge Planning Updated by [id number]: Adam Mata on 05/30/18 1:[address] Patient Name: DEVORAH LORD Encounter No: [id number] : 1950 Primary Insurance: [facility] [employer] Anticipated DC Date: 05-28-2018 Planned Disposition: Home DCP follow-up note: CM MET WITH PT IN ROOM TO DISCUSS DISCHARGE NEEDS AND PLANNING. CM DISCUSSED AVAILABILITY OF HOME HEALTH, REHAB SERVICES AND MEDICAL EQUIPMENT. PT DENIES DISCHARGE NEEDS. PT DOES NOT KNOW IF THE DOCTOR IS GOING TO WANT A BIPAP FOR PT'S HOME USE. PT DOES NOT HAVE HOME BIPAP AND GETS ALL MEDICAL EQUIPMENT FROM THE [facility]. PT IS SEEN AT THE [facility] BY TEAM 3. IMPORTANT MESSAGE FROM MEDICARE PROVIDED AND EXPLAINED. CM TO FOLLOW AND ASSIST NEEDED. IF PT REQUIRES ANY MEDICAL EQUIPMENT FOR DISCHARGE HOME, PT GETS EQUIPMENT FROM [facility], [facility], TEAM 3. Adam Mata, CASE MANAGEMENT DCP- Discharge Planning Updated by [id number]: Sadaf Murphy on 05/26/18 3:[address] Patient Name: DEVORAH LORD Admission Status: ER Accout number: [id number] Admission Date: 05-26-2018 : 10-02-1951 Admission Diagnosis: Attending: ZAK MENJIVAR Current LOS: 1 Anticipated DC Date: 05-28-2018 Planned Disposition: Home Primary Insurance: [employer] Discharge Planning Comments: CM met with patient to complete initial dc planning assessment. CM educated patient on the CM role and verbal consent given by patient to complete assessment. Patient lives at home alone and reports he is independent in his care at home. DME at home is a walker, cane, and oxygen. At discharge patient plans to return home alone and feels this is a safe discharge. CM discussed availability of home health, rehab services, and medical equipment. Patient was placed on bipap in the er due to acidosis. Patient is also [facility] but requested to stay here. He stated he has stayed here before and the VA paid for it. CM called the [facility] and patient listed as unstable at this for transfer at this time. CM spoke to Yuliet regarding admission to our facility. Patient denied known discharge needs at this time. CM will continue to follow and will assist as needed with dc plans/needs. Sleeve Maker: Sadaf Murphy RN, [facility] DCPIA - Discharge Planning Initial Assessment Updated by [email or web address]: Sadaf Murphy on 05/26/18 4:29 pm * Is the patient Alert and Oriented? Yes * PCP [facility] doctor * Pharmacy [facility] provides all his medications. * Preadmission Environment Home Alone * ADLs Independent * Equipment Cane Oxygen Rolling Walker * List name and contact numbers for known caregivers / representatives who currently or will assist patient after discharge: Iliana Castro - daughter - [phone] Shelley Reed - son - [phone] * Verbal permission to speak to the caregivers and representatives has been obtained from the patient. Yes * Community resources currently utilized None * Additional services required to return to the preadmission environment? No * Can the patient safely return to the preadmission environment? Yes * Has this patient been hospitalized within the prior 30 days at any hospital? Yes Coverage Notice Reviewer: [id number] - Adam Mata Notice Issued Date-Time: 05/30/2018 14:10 Notice Type: IM Discharge Notice Notice Delivered To: Patient Relationship to Patient: Setter Helper Name: Delivery Method: HAND - Hand Delivered Uma Days: Prior Verbal Notification: Recipient Understood Notice: Yes Recipient Signature: Yes Med Rec Note Co-signed by Attending: Coverage Notice Comment: Last DP export: 05/31/18 8:25 a Patient Name: DEVORAH LORD Page 22753 at 0944 All edits/amendments must be made on the electronic document DICTATION DATE: 06/03/18943 GLAZING MACHINE OPERATOR: KATLIN 06/03/18943 RPT#: [id number] DC DATE: STATUS: ADM IN [facility] [address] [place] [address] END OF REPORT
--- NOTE | 2018-06-03 15:38 | MORECARE ---
CASE MANAGEMENT DISCHARGE SUMMARY PATIENT: DEVORAH LORD UNIT: [id number] ADM DATE: 05/26/18 AGE: 67 : 50 SEX: M ROOM/BED: D.8951 AUTHOR: TREASURE,DOC PHYSICIAN: REFERRING PHYSICIAN: ZAK MENJIVAR MD DATE OF SERVICE: 06/03/18 Discharge Plan Patient Name: DEVORAH LORD Facility: [facility]:[place] : 1950 Planned Disposition: [facility] facility Anticipated Discharge Date: 06/03/18 Discharge Date: Expected LOS: 8 Initial Reviewer: [id number] Initial Review Date: 05/26/2018 Generated: 06/03/18 4:38 pm Comments DCP- Discharge Planning Updated by [id number]: Adam Mata on 06/03/18 8:[address] Patient Name: DEVORAH LORD Encounter No: [id number] : 1950 Primary Insurance: [employer] Anticipated DC Date: 06-03-2018 Planned Disposition: Inpatient Rehab External Planned Provider: [facility] DCP follow-up note: CM MET WITH PT AND DAUGHTER, ILIANA GALARZA, IN ROOM TO DISCUSS DISCHARGE PLANNING AND NEEDS. DEVORAH LORD provided verbal consent to discuss current and ongoing needs with/in the presence of: ILIANA GALARZA. PT AND DAUGHTER REPORT PT NEEDS REHAB PRIOR TO GOING HOME ALONE AND THEY ARE HOPING FOR [facility] HOSPITAL TRANSFER. CM ADVISED THE REFERRAL FOR [facility]PATIENT REHAB AT [facility] IN [place] FAXED LAST SUNDAY. CM NOTES PT IS ON 11 LITERS WITH BIPAP ON DURING CM VISIT. CM FAXED REFERRAL UPDATE TO [facility] AT [phone]. CM WAITING ADMISSION DETERMINATION FROM [facility]. ANUP Maria DCP- Discharge Planning Updated by [id number]: Adam Mata on 05/31/18 8:[address] Patient Name: DEVORAH LORD Encounter No: [id number] : 1950 Primary Insurance: [facility] ADMINISTRATION Anticipated DC Date: 06-03-2018 Planned Disposition: Inpatient Rehab External Planned Provider: [facility] DCP follow-up note: CM RECEIVED ORDER FOR INPATIENT REHAB PRESCREEN, MET WITH PT IN ROOM TO DISCUSS DISCHARGE PLANNING AND NEEDS. PT REPORTS HE THINKS HE MAY NEED REHAB PRIOR TO GOING HOME ALONE. CM DISCUSSED REHAB OPTIONS PT IS REGISTERED WITH [facility] FOR THIS STAY. PT WOULD LIKE FOR CM TO LOOK INTO INPATIENT REHAB WITH THE [facility] AND STATES THEY HAVE ONE IN [place]. CM CALLED [facility], , SPOKE TO UMBERTO RODAS APN, WHO WILL SCREEN PT FOR ADMISSION TO [facility]. CM FAXED REFERRAL TO [facility] AT [phone]. CM SPOKE TO [facility]ING OF INPATIENT REH[facility] AT [place] WHO ADVISED THAT PT'S CURRENT HOSPITAL STAY WOULD HAVE TO BE BILLED WITH MEDICARE PRIMARY TO BE CONSIDERED FOR REHAB AT [place]. CM REVIEWED CHART, PT IS PRIMARY INSURANCE [facility] WITH SECONDARY OF MEDICARE. CM ASKED BING TO REMOVE PT FROM [place] INPATIENT REHAB LIST FOR SCREENING. CM WAITING ADMISSION DETERMINATION FROM [facility]. Adam Mata, CASE MANAGEMENT DCP- Discharge Planning Updated by [email or web address]: Adam Mata on 05/30/18 1:[address] Patient Name: DEVORAH LORD Encounter No: [id number] : 1950 Primary Insurance: [facility] ADMINISTRATION Anticipated DC Date: 05-28-2018 Planned Disposition: Home DCP follow-up note: CM MET WITH PT IN ROOM TO DISCUSS DISCHARGE NEEDS AND PLANNING. CM DISCUSSED AVAILABILITY OF HOME HEALTH, REHAB SERVICES AND MEDICAL EQUIPMENT. PT DENIES DISCHARGE NEEDS. PT DOES NOT KNOW IF THE DOCTOR IS GOING TO WANT A BIPAP FOR PT'S HOME USE. PT DOES NOT HAVE HOME BIPAP AND GETS ALL MEDICAL EQUIPMENT FROM THE [facility]. PT IS SEEN AT THE [facility] BY TEAM 3. IMPORTANT MESSAGE FROM MEDICARE PROVIDED AND EXPLAINED. CM TO FOLLOW AND ASSIST NEEDED. IF PT REQUIRES ANY MEDICAL EQUIPMENT FOR DISCHARGE HOME, PT GETS EQUIPMENT FROM [facility], [facility], TEAM 3. Adam Mata CASE MANAGEMENT DCP- Discharge Planning Updated by [id number]: Sadaf Murphy on 05/26/18 3:[address] Patient Name: DEVORAH LORD Admission Status: ER Accout number: [id number] Admission Date: 05-26-2018 : 1950 Admission Diagnosis: Attending: ZAK MENJIVAR Current LOS: 1 Anticipated DC Date: 05-28-2018 Planned Disposition: Home Primary Insurance: [employer] Discharge Planning Comments: CM met with patient to complete initial dc planning assessment. CM educated patient on the CM role and verbal consent given by patient to complete assessment. Patient lives at home alone and reports he is independent in his care at home. DME at home is a walker, cane, and oxygen. At discharge patient plans to return home alone and feels this is a safe discharge. CM discussed availability of home health, rehab services, and medical equipment. Patient was placed on bipap in the er due to acidosis. Patient is also [facility] but requested to stay here. He stated he has stayed here before and the VA paid for it. CM called the [facility] and patient listed as unstable at this for transfer at this time. CM spoke to Yuliet regarding admission to our facility. Patient denied known discharge needs at this time. CM will continue to follow and will assist as needed with dc plans/needs. Soldering Machine Setter: Sadaf Murphy RN, [facility] DCPIA - Discharge Planning Initial Assessment Updated by [id number]: Sadaf Murphy on 05/26/18 4:29 pm * Is the patient Alert and Oriented? Yes * PCP [facility] doctor * [facility] provides all his medications. * Preadmission Environment Home Alone * ADLs Independent * Equipment Cane Oxygen Rolling Walker * List name and contact numbers for known caregivers / representatives who currently or will assist patient after discharge: Iliana Matthew - daughter - [phone] Shelley Reed - son - [phone] * Verbal permission to speak to the caregivers and representatives has been obtained from the patient. Yes * Community resources currently utilized None * Additional services required to return to the preadmission environment? No * Can the patient safely return to the preadmission environment? Yes * Has this patient been hospitalized within the prior 30 days at any hospital? Yes Coverage Notice Reviewer: [id number] - Adam Mata Notice Issued Date-Time: 05/30/2018 14:10 Notice Type: IM Discharge Notice Notice Delivered To: Patient Relationship to Patient: Forensic Structural Engineer Name: Delivery Method: HAND - Hand Delivered Uma Days: Prior Verbal Notification: Recipient Understood Notice: Yes Recipient Signature: Yes Med Rec Note Co-signed by Attending: Coverage Notice Comment: Last DP export: 06/03/18 8:44 a Patient Name: DEVORAH LORD Page 24026 at 1538 All edits/amendments must be made on the electronic document DICTATION DATE: 06/03/181536 PAPIER MACHE' MOLDER: KATLIN 06/03/181536 RPT#: [id number] DC DATE: STATUS: ADM IN [facility] [address] [place] [address] END OF REPORT
--- NOTE | 2018-06-03 16:49 | MORECARE ---
CASE MANAGEMENT DISCHARGE SUMMARY PATIENT: DEVORAH LORD UNIT: [id number] ADM DATE: 05/26/18 AGE: 67 : 50 SEX: M ROOM/BED: D.2482 AUTHOR: TREASURE,DOC PHYSICIAN: REFERRING PHYSICIAN: ZAK MENJIVAR MD DATE OF SERVICE: 06/03/18 Discharge Plan Patient Name: DEVORAH LORD Facility: [facility]:[place] : 1950 Planned Disposition: VA facility Anticipated Discharge Date: 06/03/18 Discharge Date: Expected LOS: 8 Initial Reviewer: [id number] Initial Review Date: 05/26/2018 Generated: 06/03/18 5:49 pm Comments DCP- Discharge Planning Updated by [id number]: Adam Mata on 06/03/18 3:[address] Patient Name: DEVORAH LORD Encounter No: [id number] : 1950 Primary Insurance: [employer] Anticipated DC Date: 06-03-2018 Planned Disposition: [facility] [place] External Planned Provider: [facility] DCP follow-up note: CM RECEIVED CALL FROM AYO OF THE [facility] WHO INFORMED CM THAT PT IS NOT APPROPRIATE FOR INPATIENT REHAB AT THIS TIME AND DUE TO DOBUTAMINE DRIP, BIPAP NEED AND ELEVATED CREATINE AND BUN, THAT PT APPEARS TO NEED ICU OR STEP DOWN UNIT CARE UNTIL STABLE. CM RECEIVED ORDER FOR VA TRANSFER. CM CALLED [facility]IAL PEST CONTROL TECHNICIAN, , THERE WAS NO ANSWER AND VOICE MAIL WAS NOT TAKING MESSAGES AT THIS TIME. CM CALLED VA EXPEDITOR, , WAS ADVISED THAT PT IS ON THE VA TRANSFER LIST, THEY ARE STILL ON DIVERSION WITH NO ABILITY TO TRANSFER PT; VA WILL CALL WHEN BED FOR TRANSFER IS AVAILABLE. CM TO CONTINUE TO FOLLOW AND ASSIST NEEDED. PT REMAINS ON THE VA TRANSFER LIST, VA REMAINS ON DIVERSION. VA TO CALL MED 2 IF AND WHEN A BED BECOMES AVAILABLE. Adam Mata CASE MANAGEMENT DCP- Discharge Planning Updated by [email or web address]: Adam Mata on 06/03/18 8:[address] Patient Name: DEVORAH LORD Encounter No: [id number] : 1950 Primary Insurance: [facility] Anticipated DC Date: 06-03-2018 Planned Disposition: Inpatient Rehab External Planned Provider: [facility] DCP follow-up note: CM MET WITH PT AND DAUGHTER, ILIANA CASTRO, IN ROOM TO DISCUSS DISCHARGE PLANNING AND NEEDS. DEVORAH LORD provided verbal consent to discuss current and ongoing needs with/in the presence of: ILIANA CASTRO. PT AND DAUGHTER REPORT PT NEEDS REHAB PRIOR TO GOING HOME ALONE AND THEY ARE HOPING FOR [facility]SF[facility]. CM ADVISED THE REFERRAL FOR [facility] [place] FAXED LAST SUNDAY. CM NOTES PT IS ON 11 LITERS WITH BIPAP ON DURING CM VISIT. CM FAXED REFERRAL UPDATE TO [facility] AT [phone]. CM WAITING ADMISSION DETERMINATION FROM [facility]. ANUP Maria DCP- Discharge Planning Updated by [email or web address]: Adam Mata on 05/31/18 8:[address] Patient Name: DEVORAH LORD Encounter No: [id number] : 1950 Primary Insurance: [employer] [facility] Anticipated DC Date: 06-03-2018 Planned Disposition: Inpatient Rehab External Planned Provider: [facility] DCP follow-up note: CM RECEIVED ORDER FOR INPATIENT REHAB PRESCREEN, MET WITH PT IN ROOM TO DISCUSS DISCHARGE PLANNING AND NEEDS. PT REPORTS HE THINKS HE MAY NEED REHAB PRIOR TO GOING HOME ALONE. CM DISCUSSED REHAB OPTIONS PT IS REGISTER[facility] FOR [facility] STAY. PT WOULD LIKE FOR CM TO LOOK INTO INPATIENT REHAB WITH THE [facility] AND STATES THEY HAVE ONE IN [place]. CM CALLED [facility], , SPOKE TO UMBERTO RODAS APN, WHO WILL SCREEN PT FOR ADMISSION TO [facility]. CM FAXED REFERRAL TO [facility] AT [phone]. CM SPOKE TO BING OF [facility]PATIENT RE[facility] AT [place] [facility] WHO ADVISED THAT PT'S CURRENT HOSPITAL STAY WOULD HAVE TO BE BILLED WITH MEDICARE PRIMARY TO BE CONSIDERED FOR REHAB AT [place]. CM REVIEWED CHART, PT IS PRIMARY INSURANCE [facility] WITH SECONDARY OF MEDICARE. CM ASKED BING TO REMOVE PT FROM [place] [facility] INPATIENT REHAB LIST FOR SCREENING. CM WAITING ADMISSION DETERMINATION FROM [facility]. Adam Mata CASE MANAGEMENT DCP- Discharge Planning Updated by [email or web address]: Adam Mata on 05/30/18 1:[address] Patient Name: DEVORAH LORD Encounter No: [id number] : 1950 Primary Insurance: [employer] Anticipated DC Date: 05-28-2018 Planned Disposition: Home DCP follow-up note: CM MET WITH PT IN ROOM TO DISCUSS DISCHARGE NEEDS AND PLANNING. CM DISCUSSED AVAILABILITY OF HOME HEALTH, REHAB SERVICES AND MEDICAL EQUIPMENT. PT DENIES DISCHARGE NEEDS. PT DOES NOT KNOW IF THE DOCTOR IS GOING TO WANT A BIPAP FOR PT'S HOME USE. PT DOES NOT HAVE HOME BIPAP AND GETS ALL MEDICAL EQUIPMENT FROM THE [facility]. PT IS SEEN AT THE [facility] BY TEAM 3. IMPORTANT MESSAGE FROM MEDICARE PROVIDED AND EXPLAINED. CM TO FOLLOW AND ASSIST NEEDED. IF PT REQUIRES ANY MEDICAL EQUIPMENT FOR DISCHARGE HOME, PT GETS EQUIPMENT FROM [facility], [facility], TEAM 3. Adam Mata, CASE MANAGEMENT DCP- Discharge Planning Updated by [email or web address]: Sadaf Murphy on 05/26/18 3:[address] Patient Name: DEVORAH LORD Admission Status: ER Accout number: [id number] Admission Date: 05-26-2018 : 1950 Admission Diagnosis: Attending: ZAK MENJIVAR Current LOS: 1 Anticipated DC Date: 05-28-2018 Planned Disposition: Home Primary Insurance: [employer] Discharge Planning Comments: CM met with patient to complete initial dc planning assessment. CM educated patient on the CM role and verbal consent given by patient to complete assessment. Patient lives at home alone and reports he is independent in his care at home. DME at home is a walker, cane, and oxygen. At discharge patient plans to return home alone and feels this is a safe discharge. CM discussed availability of home health, rehab services, and medical equipment. Patient was placed on bipap in the er due to acidosis. Patient is also [facility] but requested to stay here. He stated he has stayed here before and the VA paid for it. CM called the [facility] and patient listed as unstable at this for transfer at this time. CM spoke to Yuliet regarding admission to our facility. Patient denied known discharge needs at this time. CM will continue to follow and will assist as needed with dc plans/needs. Equipment Cleaner And Tester: Sadaf Murphy RN, [facility] DCPIA - Discharge Planning Initial Assessment Updated by [id number]: Sadaf Murphy on 05/26/18 4:29 pm * Is the patient Alert and Oriented? Yes * PCP [facility] doctor * [facility]. * Preadmission Environment Home Alone * ADLs Independent * Equipment Cane Oxygen Rolling Walker * List name and contact numbers for known caregivers / representatives who currently or will assist patient after discharge: Iliana Castro - daughter - [phone] Shelley Reed - son - [phone] * Verbal permission to speak to the caregivers and representatives has been obtained from the patient. Yes * Community resources currently utilized None * Additional services required to return to the preadmission environment? No * Can the patient safely return to the preadmission environment? Yes * Has this patient been hospitalized within the prior 30 days at any hospital? Yes Coverage Notice Reviewer: [id number] Delmi Mata Notice Issued Date-Time: 05/30/2018 14:10 Notice Type: IM Discharge Notice Notice Delivered To: Patient Relationship to Patient: Pneudraulic Systems Mechanic Name: Delivery Method: HAND - Hand Delivered Uma Days: Prior Verbal Notification: Recipient Understood Notice: Yes Recipient Signature: Yes Med Rec Note Co-signed by Attending: Coverage Notice Comment: Last DP export: 06/03/18 2:38 p Patient Name: DEVORAH LORD Page [id number] at 1649 All edits/amendments must be made on the electronic document DICTATION DATE: 06/03/181648 BUTADIENE CONVERTER OPERATOR: KATLIN 06/03/181648 RPT#: [id number] IA DATE: STATUS: ADM IN [facility] [address] [place] [address] END OF REPORT
[2018-06-04 03:50] VITALS: BP 116/61
[2018-06-04 05:53] LABS: BASOPHILS 0.2 % (0-2); EOSINOPHILS 1.6 % (0-7); HEMATOCRIT 30.6 % (42.0-54.0); HEMOGLOBIN 9.8 g/dL (13.5-17.5); IMMATURE GRANULOCYTES 0.3 % (0-5); LYMPHOCYTES 10.8 % (15-50); MCH 28.2 pg (26.0-34.0); MCV 87.9 fL (80.0-100.0); NEUTROPHILS 78.1 % (40-80); PLATELET COUNT 249 10x3/uL (130-400); RBC 3.48 10x6/uL (4.20-6.10); RDW 13.3 % (11.5-14.5); WBC 6.1 10x3/uL (4.8-10.8)
[2018-06-04 06:22] LABS: ALBUMIN 2.3 g/dL (3.4-5.0); ANION GAP 14.7 mmol/L (8-16); BILIRUBIN - TOTAL 0.32 mg/dL (0.2-1.3); CALCIUM 8.3 mg/dL (8.5-10.1); CARBON DIOXIDE 27.2 mmol/L (21.0-32.0); CREATININE - SERUM 2.3 mg/dL (0.6-1.3); POTASSIUM - SERUM 3.9 mmol/L (3.5-5.1); PROTEIN - SERUM 6.7 g/dL (6.4-8.2)
[2018-06-04 08:41] VITALS: BP 154/67
[2018-06-04 20:00] VITALS: BP 110/54
[2018-06-05 00:30] VITALS: BP 121/62; BP 137/90
[2018-06-05 04:00] VITALS: BP 108/48
[2018-06-05 05:50] LABS: BASOPHILS 0.4 % (0-2); HEMOGLOBIN 9.6 g/dL (13.5-17.5); IMMATURE GRANULOCYTES 0.2 % (0-5); LYMPHOCYTES 16.4 % (15-50); MCH 28.2 pg (26.0-34.0); MEAN PLATELET VOLUME 10.7 fL (7.4-10.4); MONOCYTES 12.1 % (2-11); NEUTROPHILS 68.9 % (40-80); PLATELET COUNT 244 10x3/uL (130-400); RBC 3.41 10x6/uL (4.20-6.10); RDW 13.4 % (11.5-14.5); WBC 5.6 10x3/uL (4.8-10.8)
[2018-06-05 06:32] LABS: ALBUMIN 2.2 g/dL (3.4-5.0); BILIRUBIN - TOTAL 0.46 mg/dL (0.2-1.3); CALCIUM 8.1 mg/dL (8.5-10.1); CARBON DIOXIDE 27.9 mmol/L (21.0-32.0); CREATININE - SERUM 2.5 mg/dL (0.6-1.3); POTASSIUM - SERUM 3.9 mmol/L (3.5-5.1); PROTEIN - SERUM 6.3 g/dL (6.4-8.2)
[2018-06-05 08:34] VITALS: BP 124/60
--- NOTE | 2018-06-05 09:54 | MORECARE ---
CASE MANAGEMENT DISCHARGE SUMMARY PATIENT: DEVORAH LORD UNIT: [id number] ADM DATE: 05/26/18 AGE: 67 : 50 SEX: M ROOM/BED: D.3425 AUTHOR: TREASURE,DOC PHYSICIAN: REFERRING PHYSICIAN: ZAK MENJIVAR MD DATE OF SERVICE: 06/05/18 Discharge Plan Patient Name: DEVORAH LORD Facility: [facility]:[place] : 1950 Planned Disposition: [facility] facility Anticipated Discharge Date: 06/03/18 Discharge Date: Expected LOS: 8 Initial Reviewer: [id number] Initial Review Date: 05/26/2018 Generated: 06/05/18 10:54 am Comments DCP- Discharge Planning Updated by [email or web address]: Carmen Tavares on 06/05/18 8:[address] @0838 RECEIVED A CALL FROM THE [facility] ZACH CUEVAS, WHO STATED THAT SHE NEEDED UPDATED CLINICALS, AND SHE ALSO SUGGESTED THAT WE CALL THE [id number] NUMBER FOR [facility] BECAUSE THEY HAD BEDS OPEN LAST NIGHT AND WE MAY BE ABLE TO GET HIM IN. IF NOT, AT LEAST CHECK ON HIS STATUS FOR A BED. I WILL FAX UPDATED CLINICALS SHORTLY. @ 0845 I CALLED THE VA EXPEDITOR ([phone]) AND IT RANG UNTIL THE PHONE DISCONNECTED. @ 0847, I CALLED AGAIN AND IT RANG FOR 2 MINUTES AND THEN DISCONNECTED. @ 0910 I CALLED AGAIN, AND AGAIN IT RANG FOR 2 MINUTES AND THEN DISCONNECTED. @0932 I CALLED AND SPOKE WITH PRAVIN. EXPLAINED THAT ZACH HAD TALKED TO ME THIS AM AND SHE SUGGESTED I CALLED BECAUSE BEDS CAME OPEN LAST NIGHT AND PATIENT MAY BE ABLE TO TRANSFER. SHE TOOK AN UPDATED REPORT AND STATED THAT THEY HAVE TO PRIORTIZE WHO COMES AND WHO CAN STAY WHERE THEY ARE. SHE ASKED FOR FAX NUMBER AND NUMBER TO CALL DR MENJIVAR ON. FAX NUMBER GIVEN AND AFTER VERIFICATION, DR MENJIVAR'S CELL NUMBER WAS GIVEN TO HER. SHE ALSO REQUESTED NUMBER TO THE FLOOR NURSE FOR REPORT. NAME OF TODAYS BEDSIDE NURSE AND THE FLOOR NUMBER GIVEN. WILL WAIT FOR RETURN CALL. DCP- Discharge Planning Updated by [email or web address]: Adam Mata on 06/03/18 3:[address] Patient Name: DEVORAH LORD Encounter No: [id number] : 1950 Primary Insurance: [employer] Anticipated DC Date: 06-03-2018 Planned Disposition: [facility] facility External Planned Provider: [facility] DCP follow-up note: CM RECEIVED CALL FROM AYO OF THE [facility] WHO INFORMED CM THAT PT IS NOT APPROPRIATE FOR INPATIENT REHAB AT THIS TIME AND DUE TO DOBUTAMINE DRIP, BIPAP NEED AND ELEVATED CREATINE AND BUN, THAT PT APPEARS TO NEED ICU OR STEP DOWN UNIT CARE UNTIL STABLE. CM RECEIVED ORDER FOR VA TRANSFER. CM CALLED [facility] FELLER HAND, , THERE WAS NO ANSWER AND VOICE MAIL WAS NOT TAKING MESSAGES AT THIS TIME. CM CALLED VA EXPEDITOR, , WAS ADVISED THAT PT IS ON THE VA TRANSFER LIST, THEY ARE STILL ON DIVERSION WITH NO ABILITY TO TRANSFER PT; VA WILL CALL WHEN BED FOR TRANSFER IS AVAILABLE. CM TO CONTINUE TO FOLLOW AND ASSIST NEEDED. PT REMAINS ON THE VA TRANSFER LIST, VA REMAINS ON DIVERSION. VA TO CALL MED 2 IF AND WHEN A BED BECOMES AVAILABLE. ANUP Maria MANAGEMENT DCP- Discharge Planning Updated by [id number]: Adam Mata on 06/03/18 8:[address] Patient Name: DEVORAH LORD Encounter No: [id number] : 1950 Primary Insurance: [employer] Anticipated DC Date: 06-03-2018 Planned Disposition: Inpatient Rehab External Planned Provider: [facility] DCP follow-up note: CM MET WITH PT AND DAUGHTER, ILIANA CASTRO, IN ROOM TO DISCUSS DISCHARGE PLANNING AND NEEDS. DEVORAH LORD provided verbal consent to discuss current and ongoing needs with/in the presence of: ILIANA CASTRO. PT AND DAUGHTER REPORT PT NEEDS REHAB PRIOR TO GOING HOME ALONE AND THEY ARE HOPING FOR [facility] TRANSFER. CM ADVISED THE REFERRAL FOR [facility] [place] FAXED LAST SUNDAY. CM NOTES PT IS ON 11 LITERS WITH BIPAP ON DURING CM VISIT. CM FAXED REFERRAL UPDATE TO [facility] AT [phone]. CM WAITING ADMISSION DETERMINATION FROM [facility]. Adam Mata CASE MANAGEMENT DCP- Discharge Planning Updated by [id number]: Adam Mata on 05/31/18 8:[address] Patient Name: DEVORAH LORD Encounter No: [id number] : 1950 Primary Insurance: [employer] Anticipated DC Date: 06-03-2018 Planned Disposition: Inpatient Rehab External Planned Provider: [facility] DCP follow-up note: CM RECEIVED ORDER FOR INPATIENT REHAB PRESCREEN, MET WITH PT IN ROOM TO DISCUSS DISCHARGE PLANNING AND NEEDS. PT REPORTS HE THINKS HE MAY NEED REHAB PRIOR TO GOING HOME ALONE. CM DISCUSSED REHAB OPTIONS PT [facility] REGISTERED [facility] FOR [facility] STAY. PT WOULD LIKE FOR CM TO LOOK INTO INPATIENT REHAB WITH THE [facility] AND STATES THEY HAVE ONE IN [place]. CM CALLED [facility], , SPOKE TO UMBERTO RODAS APN, WHO WILL SCREEN PT FOR ADMISSION TO [facility]. CM FAXED REFERRAL TO [facility] AT [phone]. CM SPOKE TO BING OF INPATIENT REHAB AT [facility] WHO ADVISED THAT PT'S CURRENT HOSPITAL STAY WOULD HAVE TO BE BILLED WITH MEDICARE PRIMARY TO BE CONSIDERED FOR REHAB AT [facility]. CM REVIEWED CHART, PT IS [facility] WITH SEC[facility] OF MEDICARE. CM ASKED BING TO REMOVE PT FROM [facility] INPATIENT REHAB LIST FOR SCREENING. CM WAITING ADMISSION DETERMINATION FROM [facility]. ANUP Maria DCP- Discharge Planning Updated by [id number]: Adam Mata on 05/30/18 1:[address] Patient Name: DEVORAH LORD Encounter No: [id number] : 1950 Primary Insurance: [employer] Anticipated DC Date: 05-28-2018 Planned Disposition: Home DCP follow-up note: CM MET WITH PT IN ROOM TO DISCUSS DISCHARGE NEEDS AND PLANNING. CM DISCUSSED AVAILABILITY OF HOME HEALTH, REHAB SERVICES AND MEDICAL EQUIPMENT. PT DENIES DISCHARGE NEEDS. PT DOES NOT KNOW IF THE DOCTOR IS GOING TO WANT A BIPAP FOR PT'S HOME USE. PT DOES NOT HAVE HOME BIPAP AND GETS ALL MEDICAL EQUIPMENT FROM THE [facility]. PT IS SEEN AT THE [facility] BY TEAM 3. IMPORTANT MESSAGE FROM MEDICARE PROVIDED AND EXPLAINED. CM TO FOLLOW AND ASSIST NEEDED. IF PT REQUIRES ANY MEDICAL EQUIPMENT FOR DISCHARGE HOME, PT GETS EQUIPMENT FROM [facility], [facility], TEAM 3. Adam [place], CASE MANAGEMENT DCP- Discharge Planning Updated by [id number]: Sadaf Murphy on 05/26/18 3:[address] Patient Name: DEVORAH LORD Admission Status: ER Accout number: [id number] Admission Date: 05-26-2018 : 1950 Admission Diagnosis: Attending: ZAK MENJIVAR Current LOS: 1 Anticipated DC Date: 05-28-2018 Planned Disposition: Home Primary Insurance: [employer] Discharge Planning Comments: CM met with patient to complete initial dc planning assessment. CM educated patient on the CM role and verbal consent given by patient to complete assessment. Patient lives at home alone and reports he is independent in his care at home. DME at home is a walker, cane, and oxygen. At discharge patient plans to return home alone and feels this is a safe discharge. CM discussed availability of home health, rehab services, and medical equipment. Patient was placed on bipap in the er due to acidosis. Patient is also [facility] but requested to stay here. He stated he has stayed here before and the VA paid for it. CM called the [facility] and patient listed as unstable at this for transfer at this time. CM spoke to Yuliet regarding admission to our facility. Patient denied known discharge needs at this time. CM will continue to follow and will assist as needed with dc plans/needs. Clerk Operator: Sadaf Murphy RN, [facility] DCPIA - Discharge Planning Initial Assessment Updated by [email or web address]: Sadaf Murphy on 05/26/18 4:29 pm * Is the patient Alert and Oriented? Yes * PCP [facility] doctor * [facility] provides all [facility]. * Preadmission Environment Home Alone * ADLs Independent * Equipment Cane Oxygen Rolling Walker * List name and contact numbers for known caregivers / representatives who currently or will assist patient after discharge: Iliana Castro - daughter - [phone] Shelley Reed - son - [phone] * Verbal permission to speak to the caregivers and representatives has been obtained from the patient. Yes * Community resources currently utilized None * Additional services required to return to the preadmission environment? No * Can the patient safely return to the preadmission environment? Yes * Has this patient been hospitalized within the prior 30 days at any hospital? Yes Coverage Notice Reviewer: [id number] - Adam Mata Notice Issued Date-Time: 05/30/2018 14:10 Notice Type: IM Discharge Notice Notice Delivered To: Patient Relationship to Patient: Racing Secretary Name: Delivery Method: HAND - Hand Delivered Mua Days: Prior Verbal Notification: Recipient Understood Notice: Yes Recipient Signature: Yes Med Rec Note Co-signed by Attending: Coverage Notice Comment: Last DP export: 06/03/18 3:49 p Patient Name: DEVORAH LORD Page 26606 at 0954 All edits/amendments must be made on the electronic document DICTATION DATE: 06/05/18952 UNDERCAR SPECIALIST: KATLIN 06/05/18952 RPT#: [id number] DC DATE: STATUS: ADM IN [facility] [address] [place] [address] END OF REPORT
[2018-06-05 11:31] VITALS: BP 109/53
[2018-06-05 16:17] VITALS: BP 101/54
[2018-06-05 20:00] VITALS: BP 101/55
[2018-06-06 00:30] VITALS: BP 100/57
[2018-06-06 05:00] VITALS: BP 111/59
[2018-06-06 07:08] LABS: BASOPHILS 0.2 % (0-2); EOSINOPHILS 2.2 % (0-7); HEMOGLOBIN 8.2 g/dL (13.5-17.5); IMMATURE GRANULOCYTES 0.2 % (0-5); LYMPHOCYTES 14.8 % (15-50); MCH 27.6 pg (26.0-34.0); MCHC 30.4 g/dL (31.0-37.0); MEAN PLATELET VOLUME 10.9 fL (7.4-10.4); MONOCYTES 11.8 % (2-11); NEUTROPHILS 70.8 % (40-80); PLATELET COUNT 231 10x3/uL (130-400); RBC 2.97 10x6/uL (4.20-6.10); RDW 13.5 % (11.5-14.5); WBC 5.5 10x3/uL (4.8-10.8)
[2018-06-06 07:47] LABS: MCV 90.9 fL (80.0-100.0)
[2018-06-06 08:32] VITALS: BP 107/56
[2018-06-06 10:22] LABS: ANION GAP 11.3 mmol/L (8-16); CALCIUM 8.3 mg/dL (8.5-10.1); CARBON DIOXIDE 32.5 mmol/L (21.0-32.0); CREATININE - SERUM 2.8 mg/dL (0.6-1.3); POTASSIUM - SERUM 3.8 mmol/L (3.5-5.1)
[2018-06-06 12:04] VITALS: BP 96/50
[2018-06-06 16:12] VITALS: BP 110/58
[2018-06-06 20:00] VITALS: BP 107/60
[2018-06-07 01:36] LABS: HEMATOCRIT 31.7 % (42.0-54.0); HEMOGLOBIN 10.1 g/dL (13.5-17.5); MCH 27.9 pg (26.0-34.0); MCHC 31.9 g/dL (31.0-37.0); MCV 87.6 fL (80.0-100.0); MEAN PLATELET VOLUME 11.1 fL (7.4-10.4); RBC 3.62 10x6/uL (4.20-6.10); RDW 13.4 % (11.5-14.5); WBC 8.1 10x3/uL (4.8-10.8)
[2018-06-07 04:00] VITALS: BP 140/62
[2018-06-07 05:50] LABS: BASOPHILS 0.3 % (0-2); EOSINOPHILS 2.4 % (0-7); HEMATOCRIT 31.1 % (42.0-54.0); HEMOGLOBIN 9.8 g/dL (13.5-17.5); IMMATURE GRANULOCYTES 0.1 % (0-5); LYMPHOCYTES 12.8 % (15-50); MCH 27.5 pg (26.0-34.0); MCHC 31.5 g/dL (31.0-37.0); MCV 87.4 fL (80.0-100.0); MEAN PLATELET VOLUME 11.1 fL (7.4-10.4); MONOCYTES 9.7 % (2-11); NEUTROPHILS 74.7 % (40-80); PLATELET COUNT 266 10x3/uL (130-400); RBC 3.56 10x6/uL (4.20-6.10); RDW 13.5 % (11.5-14.5); WBC 7.1 10x3/uL (4.8-10.8)
[2018-06-07 06:10] LABS: ANION GAP 10.9 mmol/L (8-16); CALCIUM 8.3 mg/dL (8.5-10.1); CARBON DIOXIDE 29.8 mmol/L (21.0-32.0); CREATININE - SERUM 2.6 mg/dL (0.6-1.3); POTASSIUM - SERUM 3.7 mmol/L (3.5-5.1)
[2018-06-07 08:25] VITALS: BP 132/61
[2018-06-07 12:08] VITALS: BP 129/64
[2018-06-07 16:06] VITALS: BP 124/59
[2018-06-07 20:56] VITALS: BP 129/60
[2018-06-08] VITALS (7 sets, daily range): BP systolic 90–142; BP diastolic 57–68
[2018-06-08 07:30] LABS: BASOPHILS 0.3 % (0-2); EOSINOPHILS 1.1 % (0-7); HEMATOCRIT 32.5 % (42.0-54.0); HEMOGLOBIN 10.3 g/dL (13.5-17.5); IMMATURE GRANULOCYTES 0.3 % (0-5); LYMPHOCYTES 10.4 % (15-50); MCH 27.7 pg (26.0-34.0); MCHC 31.7 g/dL (31.0-37.0); MCV 87.4 fL (80.0-100.0); MEAN PLATELET VOLUME 11.2 fL (7.4-10.4); MONOCYTES 7.5 % (2-11); NEUTROPHILS 80.4 % (40-80); PLATELET COUNT 278 10x3/uL (130-400); RBC 3.72 10x6/uL (4.20-6.10); RDW 13.6 % (11.5-14.5); WBC 7.4 10x3/uL (4.8-10.8)
[2018-06-08 07:46] LABS: ANION GAP 11.7 mmol/L (8-16); CALCIUM 8.7 mg/dL (8.5-10.1); CARBON DIOXIDE 32.9 mmol/L (21.0-32.0); CREATININE - SERUM 2.4 mg/dL (0.6-1.3); POTASSIUM - SERUM 3.6 mmol/L (3.5-5.1)
[2018-06-09 00:01] VITALS: BP 111/53
[2018-06-09 04:00] VITALS: BP 107/60
[2018-06-09 07:03] LABS: BASOPHILS 0.3 % (0-2); EOSINOPHILS 2.7 % (0-7); HEMATOCRIT 31.6 % (42.0-54.0); HEMOGLOBIN 9.9 g/dL (13.5-17.5); IMMATURE GRANULOCYTES 0.2 % (0-5); LYMPHOCYTES 14.8 % (15-50); MCH 27.7 pg (26.0-34.0); MCHC 31.3 g/dL (31.0-37.0); MCV 88.5 fL (80.0-100.0); MEAN PLATELET VOLUME 11.2 fL (7.4-10.4); MONOCYTES 9.6 % (2-11); NEUTROPHILS 72.4 % (40-80); PLATELET COUNT 260 10x3/uL (130-400); RBC 3.57 10x6/uL (4.20-6.10); RDW 13.7 % (11.5-14.5); WBC 6.6 10x3/uL (4.8-10.8)
[2018-06-09 07:12] LABS: ANION GAP 9.3 mmol/L (8-16); CALCIUM 8.7 mg/dL (8.5-10.1); CARBON DIOXIDE 36.1 mmol/L (21.0-32.0); CREATININE - SERUM 2.3 mg/dL (0.6-1.3); POTASSIUM - SERUM 3.4 mmol/L (3.5-5.1)
[2018-06-09 08:34] VITALS: BP 117/60
[2018-06-09 11:20] VITALS: BP 145/58
[2018-06-09 15:32] VITALS: BP 100/46
[2018-06-09 21:11] VITALS: BP 105/65
[2018-06-10 03:55] VITALS: BP 99/47
[2018-06-10 06:12] LABS: BASOPHILS 0.3 % (0-2); EOSINOPHILS 2.9 % (0-7); HEMATOCRIT 33.1 % (42.0-54.0); HEMOGLOBIN 10.5 g/dL (13.5-17.5); IMMATURE GRANULOCYTES 0.7 % (0-5); LYMPHOCYTES 15.1 % (15-50); MCHC 31.7 g/dL (31.0-37.0); MCV 88.3 fL (80.0-100.0); MEAN PLATELET VOLUME 11.2 fL (7.4-10.4); MONOCYTES 7.8 % (2-11); NEUTROPHILS 73.2 % (40-80); RBC 3.75 10x6/uL (4.20-6.10); RDW 13.7 % (11.5-14.5); WBC 5.8 10x3/uL (4.8-10.8)
[2018-06-10 06:25] LABS: PLATELET COUNT 207 10x3/uL (130-400)
[2018-06-10 06:31] LABS: ANION GAP 9.6 mmol/L (8-16); CALCIUM 8.8 mg/dL (8.5-10.1); CARBON DIOXIDE 34.9 mmol/L (21.0-32.0); CREATININE - SERUM 2.1 mg/dL (0.6-1.3); POTASSIUM - SERUM 3.5 mmol/L (3.5-5.1)
[2018-06-10 08:28] VITALS: BP 126/63
[2018-06-10 12:11] VITALS: BP 128/65
[2018-06-10 16:48] VITALS: BP 116/71
[2018-06-10 19:52] VITALS: BP 105/52
[2018-06-10 23:55] VITALS: BP 105/48
[2018-06-11 03:55] VITALS: BP 101/48
[2018-06-11 05:41] LABS: BASOPHILS 0.1 % (0-2); EOSINOPHILS 3.1 % (0-7); HEMATOCRIT 31.6 % (42.0-54.0); HEMOGLOBIN 9.9 g/dL (13.5-17.5); IMMATURE GRANULOCYTES 0.3 % (0-5); LYMPHOCYTES 13.7 % (15-50); MCH 27.5 pg (26.0-34.0); MCHC 31.3 g/dL (31.0-37.0); MCV 87.8 fL (80.0-100.0); MEAN PLATELET VOLUME 11.2 fL (7.4-10.4); MONOCYTES 8.5 % (2-11); NEUTROPHILS 74.3 % (40-80); RDW 13.6 % (11.5-14.5)
[2018-06-11 05:42] LABS: PLATELET COUNT 272 10x3/uL (130-400); WBC 7.4 10x3/uL (4.8-10.8)
[2018-06-11 05:58] LABS: ANION GAP 5.3 mmol/L (8-16); CALCIUM 8.5 mg/dL (8.5-10.1); CARBON DIOXIDE 39.9 mmol/L (21.0-32.0); CREATININE - SERUM 2.1 mg/dL (0.6-1.3); PHOSPHOROUS 3.7 mg/dL (2.5-4.9); POTASSIUM - SERUM 3.2 mmol/L (3.5-5.1)
[2018-06-11 08:37] VITALS: BP 106/57
[2018-06-11 16:30] VITALS: BP 110/52
[2018-06-11 20:00] VITALS: BP 94/60
[2018-06-12 00:30] VITALS: BP 107/54
[2018-06-12 05:30] VITALS: BP 104/57
[2018-06-12 06:47] LABS: BASOPHILS 0.3 % (0-2); EOSINOPHILS 2.7 % (0-7); HEMATOCRIT 32.1 % (42.0-54.0); HEMOGLOBIN 9.9 g/dL (13.5-17.5); IMMATURE GRANULOCYTES 0.1 % (0-5); LYMPHOCYTES 14.3 % (15-50); MCH 27.3 pg (26.0-34.0); MCHC 30.8 g/dL (31.0-37.0); MCV 88.4 fL (80.0-100.0); MEAN PLATELET VOLUME 11.6 fL (7.4-10.4); MONOCYTES 7.7 % (2-11); NEUTROPHILS 74.9 % (40-80); PLATELET COUNT 255 10x3/uL (130-400); RBC 3.63 10x6/uL (4.20-6.10); RDW 13.8 % (11.5-14.5)
[2018-06-12 07:07] LABS: ANION GAP 10.3 mmol/L (8-16); CALCIUM 8.9 mg/dL (8.5-10.1); CARBON DIOXIDE 38.6 mmol/L (21.0-32.0); CREATININE - SERUM 2.4 mg/dL (0.6-1.3); POTASSIUM - SERUM 3.9 mmol/L (3.5-5.1)
[2018-06-12 08:30] VITALS: BP 94/56
[2018-06-12 11:46] VITALS: BP 110/50
[2018-06-12 15:47] VITALS: BP 94/48
--- NOTE | 2018-06-12 17:55 | MORECARE ---
CASE MANAGEMENT DISCHARGE SUMMARY PATIENT: DEVORAH LORD UNIT: [id number] ADM DATE: 05/26/18 AGE: 67 : 50 SEX: M ROOM/BED: D.0735 AUTHOR: TREASURE,DOC PHYSICIAN: REFERRING PHYSICIAN: ZAK MENJIVAR MD DATE OF SERVICE: 06/12/18 Discharge Plan Patient Name: EDVORAH LORD Facility: [facility]:[place] : 1950 Planned Disposition: [place] facility Anticipated Discharge Date: 06/03/18 Discharge Date: Expected LOS: 8 Initial Reviewer: [id number] Initial Review Date: 05/26/2018 Generated: 06/12/18 6:55 pm Comments DCP- Discharge Planning Updated by [email or web address]: Carmen Tavares on 06/12/18 4:[address] PER WHITE METAL CORROSION PROOFER, THE PATIENTS DAUGHTER HAD CALLED AND STATED THAT THE PATIENT REALLY WANTED TO BE TRANSFERRED TO THE [facility], AND SHE CALLED THE [facility] AND WAS TOLD THAT I HAD NOT BEEN IN CONTACT WITH ANYONE FOR OVER A WEEK. I EXPLAINED THAT THIS WAS UNTRUE, AND I COULD SHOW MY NOTES AND CLINICAL UPDATE CONTACTS. @ 7832, I CALLED AND SPOKE WITH DOMINGA AT [phone] ([facility] EXPEIDATOR). INITIALLY SHE PLACED ME ON HOLD AND THEN CAME BACK STATING THAT I HAD ALREADY CALLED WITH AN UPDATE AND TO CHECK THE PATIENTS STATUS TODAY AND WANTED TO KNOW IF ANYTHING HAD CHANGED. I EXPLAINED THAT I HAD NOT CALLED TODAY, THAT I HAD ONLY BEEN IN CONTACT WITH ZACH. SHE CONTINUED TO TELL ME THAT IT WAS DOCUMENTED THAT MY NAME AND NUMBER WAS VERIFIED WITH ME. I EXPLAINED THAT THAT WAS BOTHERSOME TO ME, BECAUSE I HAD NOT CALLED, BUT REGARDLESS, I NEEDED TO CHECK ON THE STATUS. SHE STATED NO BEDS AVAILABLE BUT PUT UPDATE IN. PAPER CLINICALS FAXED TO [facility]. DCP- Discharge Planning Updated by [id number]: Carmen Tavares on 06/05/18 8:[address] @0838 RECEIVED A CALL FROM THE [facility] CASEZACH MARRUFO, WHO STATED THAT SHE NEEDED UPDATED CLINICALS, AND SHE ALSO SUGGESTED THAT WE CALL THE [facility] FOR [facility] BECAUSE THEY HAD BEDS OPEN LAST NIGHT AND WE MAY BE ABLE TO GET HIM IN. IF NOT, AT LEAST CHECK ON HIS STATUS FOR A BED. I WILL FAX UPDATED CLINICALS SHORTLY. @ 0845 I CALLED THE VA EXPEDITOR ([phone]) AND IT RANG UNTIL THE PHONE DISCONNECTED. @ 0847, I CALLED AGAIN AND IT RANG FOR 2 MINUTES AND THEN DISCONNECTED. @ 0910 I CALLED AGAIN, AND AGAIN IT RANG FOR 2 MINUTES AND THEN DISCONNECTED. @0932 I CALLED AND SPOKE WITH PRAVIN. EXPLAINED THAT ZACH HAD TALKED TO ME THIS AM AND SHE SUGGESTED I CALLED BECAUSE BEDS CAME OPEN LAST NIGHT AND PATIENT MAY BE ABLE TO TRANSFER. SHE TOOK AN UPDATED REPORT AND STATED THAT THEY HAVE TO PRIORTIZE WHO COMES AND WHO CAN STAY WHERE THEY ARE. SHE ASKED FOR FAX NUMBER AND NUMBER TO CALL DR MENJIVAR ON. FAX NUMBER GIVEN AND AFTER VERIFICATION, DR MENJIVAR'S CELL NUMBER WAS GIVEN TO HER. SHE ALSO REQUESTED NUMBER TO THE FLOOR NURSE FOR REPORT. NAME OF TODAYS BEDSIDE NURSE AND THE FLOOR NUMBER GIVEN. WILL WAIT FOR RETURN CALL. DCP- Discharge Planning Updated by [id number]: Adam Mata on 06/03/18 3:[address] Patient Name: DEVORAH LORD Encounter No: [id number] : 1950 Primary Insurance: [employer] Anticipated DC Date: 06-03-2018 Planned Disposition: [place] facility External Planned Provider: [facility] DCP follow-up note: CM RECEIVED CALL FROM AYO OF THE [facility] WHO INFORMED CM THAT PT IS NOT APPROPRIATE FOR INPATIENT REHAB AT THIS TIME AND DUE TO DOBUTAMINE DRIP, BIPAP NEED AND ELEVATED CREATINE AND BUN, THAT PT APPEARS TO NEED ICU OR STEP DOWN UNIT CARE UNTIL STABLE. CM RECEIVED ORDER FOR VA TRANSFER. CM CALLED VA BENCH GRINDER, , THERE WAS NO ANSWER AND VOICE MAIL WAS NOT TAKING MESSAGES AT THIS TIME. CM CALLED VA EXPEDITOR, , WAS ADVISED THAT PT IS ON THE VA TRANSFER LIST, THEY ARE STILL ON DIVERSION WITH NO ABILITY TO TRANSFER PT; VA WILL CALL WHEN BED FOR TRANSFER IS AVAILABLE. CM TO CONTINUE TO FOLLOW AND ASSIST NEEDED. PT REMAINS ON THE VA TRANSFER LIST, VA REMAINS ON DIVERSION. VA TO CALL MED 2 IF AND WHEN A BED BECOMES AVAILABLE. Adam Mata, CASE MANAGEMENT DCP- Discharge Planning Updated by [id number]: Adam Mata on 06/03/18 8:[address] Patient Name: DEVORAH LORD Encounter No: [id number] : 1950 Primary Insurance: [employer] Anticipated DC Date: 06-03-2018 Planned Disposition: Inpatient Rehab External Planned Provider: [facility] DCP follow-up note: CM MET WITH PT AND DAUGHTER, ILIANA CASTRO, IN ROOM TO DISCUSS DISCHARGE PLANNING AND NEEDS. DEVORAH LORD provided verbal consent to discuss current and ongoing needs with/in the presence of: ILIANA CASTRO. PT AND DAUGHTER REPORT PT NEEDS REHAB PRIOR TO GOING HOME ALONE AND THEY ARE HOPING FOR [facility]. CM ADVISED THE REFERRAL FOR [facility]AB AT [facility] [place] FAXED LAST SUNDAY. CM NOTES PT IS ON 11 LITERS WITH BIPAP ON DURING CM VISIT. CM FAXED REFERRAL UPDATE TO [facility] AT [phone]. CM WAITING ADMISSION DETERMINATION FROM [facility]. Adam Mata, CASE MANAGEMENT DCP- Discharge Planning Updated by [id number]: Adam Mata on 05/31/18 8:[address] Patient Name: DEVORAH LORD Encounter No: [id number] : 1950 Primary Insurance: [employer] [facility] Anticipated DC Date: 06-03-2018 Planned Disposition: Inpatient Rehab External Planned Provider: [facility] DCP follow-up note: CM RECEIVED ORDER FOR INPATIENT REHAB PRESCREEN, MET WITH PT IN ROOM TO DISCUSS DISCHARGE PLANNING AND NEEDS. PT REPORTS HE THINKS HE MAY NEED REHAB PRIOR TO GOING HOME ALONE. CM DISCUSSED REHAB OPTIONS PT [facility] REGISTERED WITH [facility] FOR [facility]. PT WOULD LIKE FOR CM TO LOOK INTO [facility]PATIENT REHAB WITH THE [facility] AND STATES THEY HAVE ONE IN [place]. CM CALLED [facility], , SPOKE TO UMBERTO RODAS APN, WHO WILL SCREEN PT FOR ADMISSION TO [facility]. CM FA[facility]ED REFERRAL TO [facility] AT [phone]. CM SPOKE TO BING OF INPATIENT REHAB AT [place] WHO ADVISED THAT PT'S CURRENT HOSPITAL STAY WOULD HAVE TO BE BILLED WITH MEDICARE PRIMARY TO BE CONSIDERED FOR REHAB AT [facility]. CM REVIEWED CHART, PT IS PRIMARY INSURANCE [facility] WITH SECONDARY OF MEDICARE. CM ASKED BING TO REMOVE PT FROM [facility]PATIENT RE[facility]AB LIST FOR SCREENING. CM WAITING ADMISSION DETERMINATION FROM [facility]. Adam Mata CASE MANAGEMENT DCP- Discharge Planning Updated by [id number]: Adam Mata on 05/30/18 1:[address] Patient Name: DEVORAH LORD Encounter No: [id number] : 1950 Primary Insurance: [employer] Anticipated DC Date: 05-28-2018 Planned Disposition: Home DCP follow-up note: CM MET WITH PT IN ROOM TO DISCUSS DISCHARGE NEEDS AND PLANNING. CM DISCUSSED AVAILABILITY OF HOME HEALTH, REHAB SERVICES AND MEDICAL EQUIPMENT. PT DENIES DISCHARGE NEEDS. PT DOES NOT KNOW IF THE DOCTOR IS GOING TO WANT A BIPAP FOR PT'S HOME USE. PT DOES NOT HAVE HOME BIPAP AND GETS ALL MEDICAL EQUIPMENT FROM THE [facility]. PT IS SEEN AT THE [facility] BY TEAM 3. IMPORTANT MESSAGE FROM MEDICARE PROVIDED AND EXPLAINED. CM TO FOLLOW AND ASSIST NEEDED. IF PT REQUIRES ANY MEDICAL EQUIPMENT FOR DISCHARGE HOME, PT GETS EQUIPMENT FROM [facility], [facility], TEAM 3. ANUP Maria DCP- Discharge Planning Updated by [id number]: Sadaf Murphy on 05/26/18 3:[address] Patient Name: DEVORAH LORD Admission Status: ER Accout number: [id number] Admission Date: 05-26-2018 : 1950 Admission Diagnosis: Attending: ZAK MENJIVAR Current LOS: 1 Anticipated DC Date: 05-28-2018 Planned Disposition: Home Primary Insurance: [employer] Discharge Planning Comments: CM met with patient to complete initial dc planning assessment. CM educated patient on the CM role and verbal consent given by patient to complete assessment. Patient lives at home alone and reports he is independent in his care at home. DME at home is a walker, cane, and oxygen. At discharge patient plans to return home alone and feels this is a safe discharge. CM discussed availability of home health, rehab services, and medical equipment. Patient was placed on bipap in the er due to acidosis. Patient is also [facility] but requested to stay here. He stated he has stayed here before and the VA paid for it. CM called the [facility] and patient listed as unstable at this for transfer at this time. CM spoke to Yuliet regarding admission to our facility. Patient denied known discharge needs at this time. CM will continue to follow and will assist as needed with dc plans/needs. Minibus Driver: Sadaf Murphy RN, [facility] DCPIA - Discharge Planning Initial Assessment Updated by [email or web address]: Sadaf Murphy on 05/26/18 4:29 pm * Is the patient Alert and Oriented? Yes * PCP [facility] doctor * [facility] all [facility] medications. * Preadmission Environment Home Alone * ADLs Independent * Equipment Cane Oxygen Rolling Walker * List name and contact numbers for known caregivers / representatives who currently or will assist patient after discharge: Iliana Castro - daughter - [phone] Shelley Awad son - [phone] * Verbal permission to speak to the caregivers and representatives has been obtained from the patient. Yes * Community resources currently utilized None * Additional services required to return to the preadmission environment? No * Can the patient safely return to the preadmission environment? Yes * Has this patient been hospitalized within the prior 30 days at any hospital? Yes Coverage Notice Reviewer: [id number] Delmi Mata Notice Issued Date-Time: 05/30/2018 14:10 Notice Type: IM Discharge Notice Notice Delivered To: Patient Relationship to Patient: Strategic Client Executive Name: Delivery Method: HAND - Hand Delivered Uma Days: Prior Verbal Notification: Recipient Understood Notice: Yes Recipient Signature: Yes Med Rec Note Co-signed by Attending: Coverage Notice Comment: Last DP export: 06/05/18 8:54 a Patient Name: DEVORAH LORD Page [id number] at 1755 All edits/amendments must be made on the electronic document DICTATION DATE: 06/12/181754 SQL REPORT ANALYST: KATLIN 06/12/181754 RPT#: [id number] DC DATE: STATUS: ADM IN [facility] [address] [place] [address] END OF REPORT
[2018-06-12 20:00] VITALS: BP 91/53
[2018-06-13] VITALS: BP 113/53
[2018-06-13 04:00] VITALS: BP 108/62
[2018-06-13 05:47] LABS: BASOPHILS 0.3 % (0-2); HEMATOCRIT 32.2 % (42.0-54.0); IMMATURE GRANULOCYTES 0.2 % (0-5); LYMPHOCYTES 14.6 % (15-50); MCH 27.5 pg (26.0-34.0); MCHC 31.1 g/dL (31.0-37.0); MCV 88.7 fL (80.0-100.0); MEAN PLATELET VOLUME 11.2 fL (7.4-10.4); MONOCYTES 8.1 % (2-11); NEUTROPHILS 74.8 % (40-80); PLATELET COUNT 229 10x3/uL (130-400); RBC 3.63 10x6/uL (4.20-6.10); RDW 14.1 % (11.5-14.5); WBC 6.7 10x3/uL (4.8-10.8)
[2018-06-13 06:04] LABS: CALCIUM 8.8 mg/dL (8.5-10.1); CARBON DIOXIDE 39.8 mmol/L (21.0-32.0); CREATININE - SERUM 2.6 mg/dL (0.6-1.3); POTASSIUM - SERUM 3.8 mmol/L (3.5-5.1)
[2018-06-13 08:36] VITALS: BP 96/57
[2018-06-13 12:07] VITALS: BP 95/48
[2018-06-13] MEDS ORDERED: IPRAT-ALBUT 0.5-3 ML INH ×2 (15:32)
[2018-06-13] MEDS ORDERED: LASIX INJ40 MG/4 ML IV (15:33)
[2018-06-13] MEDS ORDERED: HUMULIN R100 U/ML SC (15:34)
--- NOTE | 2018-06-13 16:02 | MORECARE ---
CASE MANAGEMENT DISCHARGE SUMMARY PATIENT: DEVORAH LORD UNIT: [id number] ADM DATE: 05/26/18 AGE: 67 : 50 SEX: M ROOM/BED: D.2795 AUTHOR: SHAYY AMANDA PHYSICIAN: REFERRING PHYSICIAN: ZAK MENJIVAR MD DATE OF SERVICE: 06/13/18 Discharge Plan Patient Name: DEVORAH LORD Facility: [facility]:[place] : 1950 Planned Disposition: [place] facility Anticipated Discharge Date: 06/03/18 Discharge Date: Expected LOS: 8 Initial Reviewer: [id number] Initial Review Date: 05/26/2018 Generated: 06/13/18 5:01 pm Comments DCP- Discharge Planning Updated by [email or web address]: Carmen Tavares on 06/13/18 3:[address] @6728 RECEIVED A CALL FROM HUBER AT THE [facility] ([phone]) AND SHE WAS REQUESTING THE NUMBER FOR THE DOC TO DOC TO BE DONE. SHE FEELS THAT THEY MAY HAVE A BED OPEN. I SPOKE WITH DR DAUGHERTY AND OBTAINED HIS CELL NUMBER TO GIVE HER. SHE STATED THAT DR. TOREY ROSE WILL BE CALLING HIM IN [address] DAUGHERTY RECIEVED THE CALL FOR THE DOC TO DOC. CONSENT FOR TRANSFER WAS RECEIVED AND SIGNED AND FAXED BACK. THE PATIENT WILL BE GOING TO UNIT 4B AND REPORT NEEDS TO BE CALLED TO [phone]. THIS INFORMATION WAS RELAYED TO THE SANJUANITA NURSE, KYARA LEZAMA AND THE INSULATION ENGINEMAN, AND THE PATIENT WELL HIS DAUGHTER PEPE VIA FRIEND PHONE. PEPE DID CALL BACK AND CONFIRM THE TEXT SHE RECEIVED. NOW WE WILL WAIT FOR DISCHARGE PAPERS TO BE COMPLETED AND [facility] TO ARRIVE FOR TRANSPORT. DCP- Discharge Planning Updated by [id number]: Carmen Tavares on 06/12/18 4:[address] PER MEDICAL RECORD TRANSCRIBER, THE PATIENTS DAUGHTER HAD CALLED AND STATED THAT THE PATIENT REALLY WANTED TO BE TRANSFERRED TO THE [facility], AND SHE CALLED THE [facility] AND WAS TOLD THAT I HAD NOT BEEN IN CONTACT WITH ANYONE FOR OVER A WEEK. I EXPLAINED THAT THIS WAS UNTRUE, AND I COULD SHOW MY NOTES AND CLINICAL UPDATE CONTACTS. @ 9452, I CALLED AND SPOKE WITH DOMINGA AT [phone] ([facility] EXPEIDATOR). INITIALLY SHE PLACED ME ON HOLD AND THEN CAME BACK STATING THAT I HAD ALREADY CALLED WITH AN UPDATE AND TO CHECK THE PATIENTS STATUS TODAY AND WANTED TO KNOW IF ANYTHING HAD CHANGED. I EXPLAINED THAT I HAD NOT CALLED TODAY, THAT I HAD ONLY BEEN IN CONTACT WITH ZACH. SHE CONTINUED TO TELL ME THAT IT WAS DOCUMENTED THAT MY NAME AND NUMBER WAS VERIFIED WITH ME. I EXPLAINED THAT THAT WAS BOTHERSOME TO ME, BECAUSE I HAD NOT CALLED, BUT REGARDLESS, I NEEDED TO CHECK ON THE STATUS. SHE STATED NO BEDS AVAILABLE BUT PUT UPDATE IN. PAPER CLINICALS FAXED TO [facility]. DCP- Discharge Planning Updated by [id number]: Carmen Chaitanya on 06/05/18 8:[address] @0838 RECEIVED A CALL FROM THE [facility] ZACH CUEVAS, WHO STATED THAT SHE NEEDED UPDATED CLINICALS, AND SHE ALSO SUGGESTED THAT WE CALL THE 5714 NUMBER FOR THE [facility] BECAUSE THEY HAD BEDS OPEN LAST NIGHT AND WE MAY BE ABLE TO GET HIM IN. IF NOT, AT LEAST CHECK ON HIS STATUS FOR A BED. I WILL FAX UPDATED CLINICALS SHORTLY. @ 0845 I CALLED THE VA EXPEDITOR ([phone]) AND IT RANG UNTIL THE PHONE DISCONNECTED. @ 0847, I CALLED AGAIN AND IT RANG FOR 2 MINUTES AND THEN DISCONNECTED. @ 0910 I CALLED AGAIN, AND AGAIN IT RANG FOR 2 MINUTES AND THEN DISCONNECTED. @0932 I CALLED AND SPOKE WITH PRAVIN. EXPLAINED THAT ZACH HAD TALKED TO ME THIS AM AND SHE SUGGESTED I CALLED BECAUSE BEDS CAME OPEN LAST NIGHT AND PATIENT MAY BE ABLE TO TRANSFER. SHE TOOK AN UPDATED REPORT AND STATED THAT THEY HAVE TO PRIORTIZE WHO COMES AND WHO CAN STAY WHERE THEY ARE. SHE ASKED FOR FAX NUMBER AND NUMBER TO CALL DR MENJIVAR ON. FAX NUMBER GIVEN AND AFTER VERIFICATION, DR MENJIVAR'S CELL NUMBER WAS GIVEN TO HER. SHE ALSO REQUESTED NUMBER TO THE FLOOR NURSE FOR REPORT. NAME OF TODAYS BEDSIDE NURSE AND THE FLOOR NUMBER GIVEN. WILL WAIT FOR RETURN CALL. DCP- Discharge Planning Updated by [id number]: Adam Mata on 06/03/18 3:[address] Patient Name: DEVORAH LODR Encounter No: [id number] : 1950 Primary Insurance: [employer] Anticipated DC Date: 06-03-2018 Planned Disposition: VA facility External Planned Provider: [facility] DCP follow-up note: CM RECEIVED CALL FROM AYO OF THE [facility] IN[facility] WHO INFORMED CM THAT PT IS NOT APPROPRIATE FOR INPATIENT REHAB AT THIS TIME AND DUE TO DOBUTAMINE DRIP, BIPAP NEED AND ELEVATED CREATINE AND BUN, THAT PT APPEARS TO NEED ICU OR STEP DOWN UNIT CARE UNTIL STABLE. CM RECEIVED ORDER FOR [facility] TRANSFER. CM CALLED [facility] STUDENT WORKER, , THERE WAS NO ANSWER AND VOICE MAIL WAS NOT TAKING MESSAGES AT THIS TIME. CM CALLED VA EXPEDITOR, , WAS ADVISED THAT PT IS ON THE VA TRANSFER LIST, THEY ARE STILL ON DIVERSION WITH NO ABILITY TO TRANSFER PT; VA WILL CALL WHEN BED FOR TRANSFER IS AVAILABLE. CM TO CONTINUE TO FOLLOW AND ASSIST NEEDED. PT REMAINS ON THE VA TRANSFER LIST, VA REMAINS ON DIVERSION. VA TO CALL MED 2 IF AND WHEN A BED BECOMES AVAILABLE. ANUP Maria DCP- Discharge Planning Updated by [id number]: Adam Mata on 06/03/18 8:[address] Patient Name: DEVORAH LORD Encounter No: [id number] : 1950 Primary Insurance: [employer] Anticipated DC Date: 06-03-2018 Planned Disposition: Inpatient Rehab External Planned Provider: [facility] DCP follow-up note: CM MET WITH PT AND DAUGHTER, ILIANA CASTRO, IN ROOM TO DISCUSS DISCHARGE PLANNING AND NEEDS. DEVORAH LORD provided verbal consent to discuss current and ongoing needs with/in the presence of: ILIANA CASTRO. PT AND DAUGHTER REPORT PT NEEDS REHAB PRIOR TO GOING HOME ALONE AND THEY ARE HOPING FOR [facility] TRANSFER. CM ADVISED THE REFERRAL FOR [facility] [place] FAXED LAST SUNDAY. CM NOTES PT IS ON 11 LITERS WITH BIPAP ON DURING CM VISIT. CM FAXED REFERRAL UPDATE TO [facility] AT [phone]. CM WAITING ADMISSION DETERMINATION FROM [facility]. ANUP Maria DCP- Discharge Planning Updated by [id number]: Adam Mata on 05/31/18 8:[address] Patient Name: DEVORAH Diez POP Encounter No: [id number] : 1950 Primary Insurance: [employer] Anticipated DC Date: 06-03-2018 Planned Disposition: Inpatient Rehab External Planned Provider: [facility] DCP follow-up note: CM RECEIVED ORDER FOR INPATIENT REHAB PRESCREEN, MET WITH PT IN ROOM TO DISCUSS DISCHARGE PLANNING AND NEEDS. PT REPORTS HE THINKS HE MAY NEED REHAB PRIOR TO GOING HOME ALONE. CM DISCUSSED REHAB OPTIONS PT [facility] REGISTERED WITH [facility] FOR [facility] STAY. PT WOULD LIKE FOR CM TO LOOK INTO [facility]PATIENT REHAB WITH THE [facility] AND STATES THEY HAVE ONE IN [place]. CM CALLED [facility], , SPOKE TO UMBERTO RODAS APN, WHO WILL SCREEN PT FOR ADMISSION TO [facility]. CM FAXED REFERRAL TO [facility] AT [phone]. CM SPOKE TO BING OF INPATIENT REHAB AT [place] WHO ADVISED THAT PT'S CURRENT HOSPITAL STAY WOULD HAVE TO BE BILLED WITH MEDICARE PRIMARY TO BE CONSIDERED FOR REHAB AT [place]. CM REVIEWED CHART, PT IS PRIMARY INSURANCE [facility] WITH SECONDARY OF MEDICARE. CM ASKED BING TO REMOVE PT FROM [place] INPATIENT REHAB LIST FOR SCREENING. CM WAITING ADMISSION DETERMINATION FROM [facility]. Adam Mata, CASE MANAGEMENT DCP- Discharge Planning Updated by [id number]: Adam Mata on 05/30/18 1:[address] Patient Name: DEVORAH LORD Encounter No: [id number] : 1950 Primary Insurance: [employer] Anticipated DC Date: 05-28-2018 Planned Disposition: Home DCP follow-up note: CM MET WITH PT IN ROOM TO DISCUSS DISCHARGE NEEDS AND PLANNING. CM DISCUSSED AVAILABILITY OF HOME HEALTH, REHAB SERVICES AND MEDICAL EQUIPMENT. PT DENIES DISCHARGE NEEDS. PT DOES NOT KNOW IF THE DOCTOR IS GOING TO WANT A BIPAP FOR PT'S HOME USE. PT DOES NOT HAVE HOME BIPAP AND GETS ALL MEDICAL EQUIPMENT FROM THE [facility]. PT IS SEEN AT THE [facility] BY TEAM 3. IMPORTANT MESSAGE FROM MEDICARE PROVIDED AND EXPLAINED. CM TO FOLLOW AND ASSIST NEEDED. IF PT REQUIRES ANY MEDICAL EQUIPMENT FOR DISCHARGE HOME, PT GETS EQUIPMENT FROM [facility], [facility], TEAM 3. Adam Mata, CASE MANAGEMENT DCP- Discharge Planning Updated by [id number]: Sadaf Murphy on 05/26/18 3:[address] Patient Name: DEVORAH LORD Admission Status: ER Accout number: [id number] Admission Date: 05-26-2018 : 1950 Admission Diagnosis: Attending: ZAK MENJIVAR Current LOS: 1 Anticipated DC Date: 05-28-2018 Planned Disposition: Home Primary Insurance: [employer] Discharge Planning Comments: CM met with patient to complete initial dc planning assessment. CM educated patient on the CM role and verbal consent given by patient to complete assessment. Patient lives at home alone and reports he is independent in his care at home. DME at home is a walker, cane, and oxygen. At discharge patient plans to return home alone and feels this is a safe discharge. CM discussed availability of home health, rehab services, and medical equipment. Patient was placed on bipap in the er due to acidosis. Patient is also [facility] but requested to stay here. He stated he has stayed here before and the VA paid for it. CM called the [facility] and patient listed as unstable at this for transfer at this time. CM spoke to [facility] regarding admission to our facility. Patient denied known discharge needs at this time. CM will continue to follow and will assist as needed with dc plans/needs. Mobile Home Installer: Sadaf Murphy RN, [facility] DCPIA - Discharge Planning Initial Assessment Updated by [id number]: Sadaf Murphy on 05/26/18 4:29 pm * Is the patient Alert and Oriented? Yes * PCP [facility] doctor * [facility] all [facility]. * Preadmission Environment Home Alone * ADLs Independent * Equipment Cane Oxygen Rolling Walker * List name and contact numbers for known caregivers / representatives who currently or will assist patient after discharge: Iliana Castro - daughter - [phone] Pop Reed - son - [phone] * Verbal permission to speak to the caregivers and representatives has been obtained from the patient. Yes * Community resources currently utilized None * Additional services required to return to the preadmission environment? No * Can the patient safely return to the preadmission environment? Yes * Has this patient been hospitalized within the prior 30 days at any hospital? Yes Coverage Notice Reviewer: [id number] - Adam Mata Notice Issued Date-Time: 05/30/2018 14:10 Notice Type: IM Discharge Notice Notice Delivered To: Patient Relationship to Patient: [employer] Equipment Repairer Name: Delivery Method: HAND - Hand Delivered Uma Days: Prior Verbal Notification: Recipient Understood Notice: Yes Recipient Signature: Yes Med Rec Note Co-signed by Attending: Coverage Notice Comment: Last DP export: 06/12/18 4:55 pm Patient Name: DEVORAH LORD Page 23043 at 1602 All edits/amendments must be made on the electronic document DICTATION DATE: 06/13/181600 THROAT CUTTER: KATLIN 06/13/181600 RPT#: [id number] DC DATE: STATUS: ADM IN [facility] [address] [place] [address] END OF REPORT
[2018-06-13 16:40] VITALS: BP 96/55
--- NOTE | 2018-06-13 19:28 | MORECARE ---
CASE MANAGEMENT DISCHARGE SUMMARY PATIENT: DEVORAH LORD UNIT: [id number] ADM DATE: 05/26/18 AGE: 67 : 50 SEX: M ROOM/BED: D.7785 AUTHOR: SHAYY AMANDA PHYSICIAN: REFERRING PHYSICIAN: ZAK MENJIVAR MD DATE OF SERVICE: 06/13/18 Discharge Plan Patient Name: DEVORAH LORD Facility: [facility]:[place] : 1950 Planned Disposition: CT facility Anticipated Discharge Date: 06/03/18 Discharge Date: Expected LOS: 8 Initial Reviewer: [id number] Initial Review Date: 05/26/2018 Generated: 06/13/18 8:28 pm Comments DCP- Discharge Planning Updated by [email or web address]: Carmen Tavares on 06/13/18 3:[address] @6430 RECEIVED A CALL FROM HUBER AT THE CT ([phone]) AND SHE WAS REQUESTING THE NUMBER FOR THE DOC TO DOC TO BE DONE. SHE FEELS THAT THEY MAY HAVE A BED OPEN. I SPOKE WITH DR DAUGHERTY AND OBTAINED HIS CELL NUMBER TO GIVE HER. SHE STATED THAT DR. TOREY ROSE WILL BE CALLING HIM IN [address] DAUGHERTY RECIEVED THE CALL FOR THE DOC TO DOC. CONSENT FOR TRANSFER WAS RECEIVED AND SIGNED AND FAXED BACK. THE PATIENT WILL BE GOING TO UNIT 4B AND REPORT NEEDS TO BE CALLED TO [phone]. THIS INFORMATION WAS RELAYED TO THE SANJUANITA NURSE, KYARA LEZAMA AND THE PETROL TANKER DRIVER, AND THE PATIENT WELL HIS DAUGHTER PEPE VIA FRIEND PHONE. PEPE DID CALL BACK AND CONFIRM THE TEXT SHE RECEIVED. NOW WE WILL WAIT FOR DISCHARGE PAPERS TO BE COMPLETED AND [facility] TO ARRIVE FOR TRANSPORT. DCP- Discharge Planning Updated by [id number]: Carmen Tavares on 06/12/18 4:[address] PER ENGINE PILOT, THE PATIENTS DAUGHTER HAD CALLED AND STATED THAT THE PATIENT REALLY WANTED TO BE TRANSFERRED TO THE CT, AND SHE CALLED THE CT AND WAS TOLD THAT I HAD NOT BEEN IN CONTACT WITH ANYONE FOR OVER A WEEK. I EXPLAINED THAT THIS WAS UNTRUE, AND I COULD SHOW MY NOTES AND CLINICAL UPDATE CONTACTS. @ 0062, I CALLED AND SPOKE WITH DOMINGA AT [phone] (CT EXPEIDATOR). INITIALLY SHE PLACED ME ON HOLD AND THEN CAME BACK STATING THAT I HAD ALREADY CALLED WITH AN UPDATE AND TO CHECK THE PATIENTS STATUS TODAY AND WANTED TO KNOW IF ANYTHING HAD CHANGED. I EXPLAINED THAT I HAD NOT CALLED TODAY, THAT I HAD ONLY BEEN IN CONTACT WITH [facility]. SHE CONTINUED TO TELL ME THAT IT WAS DOCUMENTED THAT MY NAME AND NUMBER WAS VERIFIED WITH ME. I EXPLAINED THAT THAT WAS BOTHERSOME TO ME, BECAUSE I HAD NOT CALLED, BUT REGARDLESS, I NEEDED TO CHECK ON THE STATUS. SHE STATED NO BEDS AVAILABLE BUT PUT UPDATE IN. PAPER CLINICALS FAXED TO [facility]. DCP- Discharge Planning Updated by [id number]: Carmen Chaitanya on 06/05/18 8:[address] @0838 RECEIVED A CALL FROM THE CT ZACH CUEVAS, WHO STATED THAT SHE NEEDED UPDATED CLINICALS, AND SHE ALSO SUGGESTED THAT WE CALL THE [facility] BECAUSE THEY HAD BEDS OPEN LAST NIGHT AND WE MAY BE ABLE TO GET HIM IN. IF NOT, AT LEAST CHECK ON HIS STATUS FOR A BED. I WILL FAX UPDATED CLINICALS SHORTLY. @ 0845 I CALLED THE [facility] EXPEDITOR ([phone]) AND IT RANG UNTIL THE PHONE DISCONNECTED. @ 0847, I CALLED AGAIN AND IT RANG FOR 2 MINUTES AND THEN DISCONNECTED. @ 0910 I CALLED AGAIN, AND AGAIN IT RANG FOR 2 MINUTES AND THEN DISCONNECTED. @0932 I CALLED AND SPOKE WITH PRAVIN. EXPLAINED THAT [facility]ACH HAD TALKED TO ME THIS AM AND SHE SUGGESTED I CALLED BECAUSE BEDS CAME OPEN LAST NIGHT AND PATIENT MAY BE ABLE TO TRANSFER. SHE TOOK AN UPDATED REPORT AND STATED THAT THEY HAVE TO PRIORTIZE WHO COMES AND WHO CAN STAY WHERE THEY ARE. SHE ASKED FOR FAX NUMBER AND NUMBER TO CALL DR MENJIVAR ON. FAX NUMBER GIVEN AND AFTER VERIFICATION, DR MENJIVAR'S CELL NUMBER WAS GIVEN TO HER. SHE ALSO REQUESTED NUMBER TO THE FLOOR NURSE FOR REPORT. NAME OF TODAYS BEDSIDE NURSE AND THE FLOOR NUMBER GIVEN. WILL WAIT FOR RETURN CALL. DCP- Discharge Planning Updated by [id number]: Adam Mata on 06/03/18 3:[address] Patient Name: DEVORAH LORD Encounter No: [id number] : 1950 Primary Insurance: [employer] Anticipated DC Date: 06-03-2018 Planned Disposition: VA facility External Planned Provider: [facility] DCP follow-up note: CM RECEIVED CALL FROM AYO OF THE [facility] WHO INFORMED CM THAT PT IS NOT APPROPRIATE FOR INPATIENT REHAB AT THIS TIME AND DUE TO DOBUTAMINE DRIP, BIPAP NEED AND ELEVATED CREATINE AND BUN, THAT PT APPEARS TO NEED ICU OR STEP DOWN UNIT CARE UNTIL STABLE. CM RECEIVED ORDER FOR VA TRANSFER. CM CALLED CT SUPERVISOR PREPRESS, , THERE WAS NO ANSWER AND VOICE MAIL WAS NOT TAKING MESSAGES AT THIS TIME. CM CALLED [facility] EXPEDITOR, , WAS ADVISED THAT PT IS ON THE VA TRANSFER LIST, THEY ARE STILL ON DIVERSION WITH NO ABILITY TO TRANSFER PT; VA WILL CALL WHEN BED FOR TRANSFER IS AVAILABLE. CM TO CONTINUE TO FOLLOW AND ASSIST NEEDED. PT REMAINS ON THE VA TRANSFER LIST, VA REMAINS ON DIVERSION. VA TO CALL MED 2 IF AND WHEN A BED BECOMES AVAILABLE. ANUP Maria DCP- Discharge Planning Updated by [id number]: Adam Mata on 06/03/18 8:[address] Patient Name: DEVORAH LORD Encounter No: [id number] : 1950 Primary Insurance: [employer] Anticipated DC Date: 06-03-2018 Planned Disposition: Inpatient Rehab External Planned Provider: [facility] DCP follow-up note: CM MET WITH PT AND DAUGHTER, ILIANA CASTRO, IN ROOM TO DISCUSS DISCHARGE PLANNING AND NEEDS. DEVORAH LORD provided verbal consent to discuss current and ongoing needs with/in the presence of: ILIANA CASTRO. PT AND DAUGHTER REPORT PT NEEDS REHAB PRIOR TO GOING HOME ALONE AND THEY ARE HOPING FOR CT HOSPITAL TRANSFER. CM ADVISED THE REFERRAL FOR INPATIENT REHAB AT CT IN [place] FAXED LAST SUNDAY. CM NOTES PT IS ON 11 LITERS WITH BIPAP ON DURING CM VISIT. CM FAXED REFERRAL UPDATE TO [facility] INPATIENT REHAB AT [phone]. CM WAITING ADMISSION DETERMINATION FROM [facility]. ANUP Maria DCP- Discharge Planning Updated by [id number]: Adam Mata on 05/31/18 8:[address] Patient Name: DEVORAH Diez POP Encounter No: [id number] : 1950 Primary Insurance: [employer] Anticipated DC Date: 06-03-2018 Planned Disposition: Inpatient Rehab External Planned Provider: [facility] DCP follow-up note: CM RECEIVED ORDER FOR INPATIENT REHAB PRESCREEN, MET WITH PT IN ROOM TO DISCUSS DISCHARGE PLANNING AND NEEDS. PT REPORTS HE THINKS HE MAY NEED REHAB PRIOR TO GOING HOME ALONE. CM DISCUSSED REHAB OPTIONS PT IS REGISTERED WITH CT FOR THIS STAY. PT WOULD LIKE FOR CM TO LOOK INTO INPATIENT REHAB WITH THE CT AND STATES THEY HAVE ONE IN [place]. CM CALLED [facility], , SPOKE TO UMBERTO RODAS APN, WHO WILL SCREEN PT FOR ADMISSION TO [facility] INPATIENT RE[facility]AB. CM FAXED REFERRAL TO [facility] INPATIENT [facility] AT [phone]. CM SPOKE TO BING OF INPATIENT REHAB AT [place] WHO ADVISED THAT PT'S CURRENT HOSPITAL STAY WOULD HAVE TO BE BILLED WITH MEDICARE PRIMARY TO BE CONSIDERED FOR REHAB AT [place]. CM REVIEWED CHART, PT IS PRIMARY INSURANCE CT WITH SECONDARY OF MEDICARE. CM ASKED BING TO REMOVE PT FROM [place] INPAT[facility] LIST FOR SCREENING. CM WAITING ADMISSION DETERMINATION FROM [facility]. Adam Mata, CASE MANAGEMENT DCP- Discharge Planning Updated by [id number]: Adam Mata on 05/30/18 1:[address] Patient Name: DEVORAH LORD Encounter No: [id number] : 1950 Primary Insurance: [employer] Anticipated DC Date: 05-28-2018 Planned Disposition: Home DCP follow-up note: CM MET WITH PT IN ROOM TO DISCUSS DISCHARGE NEEDS AND PLANNING. CM DISCUSSED AVAILABILITY OF HOME HEALTH, REHAB SERVICES AND MEDICAL EQUIPMENT. PT DENIES DISCHARGE NEEDS. PT DOES NOT KNOW IF THE DOCTOR IS GOING TO WANT A BIPAP FOR PT'S HOME USE. PT DOES NOT HAVE HOME BIPAP AND GETS ALL MEDICAL EQUIPMENT FROM THE [facility]. PT IS SEEN AT THE [facility] BY TEAM 3. IMPORTANT MESSAGE FROM MEDICARE PROVIDED AND EXPLAINED. CM TO FOLLOW AND ASSIST NEEDED. IF PT REQUIRES ANY MEDICAL EQUIPMENT FOR DISCHARGE HOME, PT GETS EQUIPMENT FROM [facility], [facility], TEAM 3. Adam Mata, CASE MANAGEMENT DCP- Discharge Planning Updated by [id number]: Sadaf Murphy on 05/26/18 3:[address] Patient Name: DEVORAH LORD Admission Status: ER Accout number: [id number] Admission Date: 05-26-2018 : 1950 Admission Diagnosis: Attending: ZAK MENJIVAR Current LOS: 1 Anticipated DC Date: 05-28-2018 Planned Disposition: Home Primary Insurance: [employer] Discharge Planning Comments: CM met with patient to complete initial dc planning assessment. CM educated patient on the CM role and verbal consent given by patient to complete assessment. Patient lives at home alone and reports he is independent in his care at home. DME at home is a walker, cane, and oxygen. At discharge patient plans to return home alone and feels this is a safe discharge. CM discussed availability of home health, rehab services, and medical equipment. Patient was placed on bipap in the er due to acidosis. Patient is also VA but requested to stay here. He stated he has stayed here before and the [facility] paid for it. CM called the [facility] and patient listed as unstable at this for transfer at this time. CM spoke to [facility] regarding admission to our facility. Patient denied known discharge needs at this time. CM will continue to follow and will assist as needed with dc plans/needs. Desktop Publishing Associate: Sadaf Murphy RN, [facility] DCPIA - Discharge Planning Initial Assessment Updated by [id number]: Sadaf Murphy on 05/26/18 4:29 pm * Is the patient Alert and Oriented? Yes * PCP CT doctor * Pharmacy CT provides all his medications. * Preadmission Environment Home Alone * ADLs Independent * Equipment Cane Oxygen Rolling Walker * List name and contact numbers for known caregivers / representatives who currently or will assist patient after discharge: Iliana Castro - daughter - [phone] Pop Reed - son - [phone] * Verbal permission to speak to the caregivers and representatives has been obtained from the patient. Yes * Community resources currently utilized None * Additional services required to return to the preadmission environment? No * Can the patient safely return to the preadmission environment? Yes * Has this patient been hospitalized within the prior 30 days at any hospital? Yes Coverage Notice Reviewer: [id number] - Adam Mata Notice Issued Date-Time: 05/30/2018 14:10 Notice Type: IM Discharge Notice Notice Delivered To: Patient Relationship to Patient: Watch Manufacturing Supervisor Name: Delivery Method: HAND - Hand Delivered Uma Days: Prior Verbal Notification: Recipient Understood Notice: Yes Recipient Signature: Yes Med Rec Note Co-signed by Attending: Coverage Notice Comment: Last DP export: 06/13/18 3:01 pm Patient Name: DEVORAH LORD Page [id number] at 1927 All edits/amendments must be made on the electronic document DICTATION DATE: 06/13/181927 BARMAID: [id number] 06/13/181927 RPT#: [id number] DC DATE: STATUS: ADM IN [facility] [address] [place] [address] END OF REPORT
[2018-06-13 21:18] VITALS: BP 88/53
== END 2018-06-13 21:28 | disposition short-term general hospital (02) | DRG 280 ==
LOC: D.ER 14:52 → D.EDHOLD 15:46 → D.ICU 15:46 → D.M2 15:46 → D.ICU 15:54 → D.M2 05-28 19:28
PROVIDERS: Emergency Medicine; Family Medicine; Internal Medicine Cardiovascular Disease; ADMIT Internal Medicine Nephrology; ATTEND Internal Medicine Nephrology
PROC: B2131ZZ Fluoroscopy of Multiple Coronary Artery Bypass Grafts using Low Osmolar Contrast (ICD-10-PCS; 2018-05-28)
PROC: B2151ZZ Fluoroscopy of Left Heart using Low Osmolar Contrast (ICD-10-PCS; 2018-05-28)
PROC: B3101ZZ Fluoroscopy of Thoracic Aorta using Low Osmolar Contrast (ICD-10-PCS; 2018-05-28)
PROC: B2181ZZ Fluoroscopy of Left Internal Mammary Bypass Graft using Low Osmolar Contrast (ICD-10-PCS; 2018-05-28)
PROC: 4A023N7 Measurement of Cardiac Sampling and Pressure, Left Heart, Percutaneous Approach (ICD-10-PCS; 2018-05-28)
PROC: B2111ZZ Fluoroscopy of Multiple Coronary Arteries using Low Osmolar Contrast (ICD-10-PCS; principal; 2018-05-28 15:41)
DX: I21.4 Non-ST elevation (NSTEMI) myocardial infarction (principal); J96.22 Acute and chronic respiratory failure with hypercapnia; I50.33 Acute on chronic diastolic (congestive) heart failure; J96.21 Acute and chronic respiratory failure with hypoxia; J18.9 Pneumonia, unspecified organism; L97.429 Non-pressure chronic ulcer of left heel and midfoot with unspecified severity; N17.9 Acute kidney failure, unspecified; I13.0 Hypertensive heart and chronic kidney disease with heart failure and stage 1 through stage 4 chronic kidney disease, or unspecified chronic kidney disease; I42.9 Cardiomyopathy, unspecified; J98.11 Atelectasis; I24.8 Other forms of acute ischemic heart disease; D50.9 Iron deficiency anemia, unspecified; E78.5 Hyperlipidemia, unspecified; I25.10 Atherosclerotic heart disease of native coronary artery without angina pectoris; E11.51 Type 2 diabetes mellitus with diabetic peripheral angiopathy without gangrene; E11.621 Type 2 diabetes mellitus with foot ulcer; E11.22 Type 2 diabetes mellitus with diabetic chronic kidney disease; N18.9 Chronic kidney disease, unspecified; I08.0 Rheumatic disorders of both mitral and aortic valves; R29.2 Abnormal reflex; N14.1 Nephropathy induced by other drugs, medicaments and biological substances; T50.8X5A Adverse effect of diagnostic agents, initial encounter; N40.0 Benign prostatic hyperplasia without lower urinary tract symptoms